=== PATIENT | female | born 1945 | race Caucasian/White ===

== ENCOUNTER 2017-12-12 12:25 | Inpatient (IN) | payer MEDICARE ==
--- NOTE | 2017-11-29 19:45 | HP ---
HISTORY AND PHYSICAL: DATE OF ADMISSION/SURGERY: 12/12/17 SURGEON: Teri Ronquillo MD * (DICTATED BY GAIL ABEL) PROCEDURE: Left total knee arthroplasty. CHIEF COMPLAINT: Left knee pain. HISTORY OF PRESENT ILLNESS: Ms. Miller is a 72-year-old female with end-stage osteoarthritis of the left knee. She has failed conservative management and has elected to proceed with a left total knee arthroplasty which is scheduled for 12/12/[address] Ronquillo. PAST MEDICAL HISTORY: Hypertension and dyslipidemia. PAST SURGICAL HISTORY: D and C, basal cell excision, and bilateral cataract removal. CURRENT MEDICATIONS: 1. Spironolactone 25 mg. 2. Atenolol 25 mg. 3. Simvastatin 20 mg daily. 4. CoQ10. 5. Multivitamin. 6. Calcium. ALLERGIES: To LATEX. FAMILY HISTORY: Diabetes, liver cancer, coronary artery disease, and COPD. SOCIAL HISTORY: She is a 72-year-old female. She lives with her . She does not smoke or use drugs. Uses occasional alcohol. REVIEW OF SYSTEMS: A complete 14-point review of systems is reviewed with the patient, it was all negative or noncontributory. She denies history of DVT, PE , hepatitis C, HIV, or anesthesia problems. PHYSICAL EXAMINATION GENERAL: She is well developed, well nourished, in no acute distress. VITAL SIGNS: She stands 5 feet 3 inches tall, weighs 160 pounds. Her blood pressure is 151/96, heart rate is 82. HEENT: Normocephalic, atraumatic. NECK: Supple. No palpable lymph nodes. PULMONARY: Lungs are clear to auscultation bilaterally. CARDIO: Regular rate and rhythm. Strong S1 and S2. ABDOMEN: Soft, nontender, nondistended. NEUROLOGIC: She is alert and oriented x3. Cranial nerves II through XII are intact. MUSCULOSKELETAL: Left lower extremity, the skin is intact. There is no open wounds or abrasions. There is a moderate joint effusion. Tenderness over the medial and lateral joint line. There is approximately 12 degrees valgus deformity at the left knee. 2+ dorsalis pedis pulses. She has intact sensation. Her lower extremity muscle group strengths are intact at 5/5. ASSESSMENT AND PLAN: Ms. Miller is a 72-year-old female with end-stage osteoarthritis of the left knee joint. She has failed conservative management and elected to proceed with a left total knee arthroplasty which is scheduled for 12/12/[address] Ronquillo discussed the risks and benefits of the surgery at today's visit and all of her questions were answered. Coumadin, Percocet, and Colace were sent to her pharmacy for postoperative pain control and DVT prophylaxis. She will follow up with Dr. Ronquillo 2 weeks after the surgery. GAIL ABEL [id number]/[facility] #: [id number] JAJA
[~2017-12-12 12:25] MED LIST: Buffered Lidocaine 0.9% SYRIN* 5 ML/SYR SYRINGE INTRADERM ONE; Bupivacaine 0.5% SDV PF* 10-30ML VIAL ONE; DiMENhydriNATE IV* 50 MG/ML VIAL IV PUSH PRN; Famotidine IV* 10 MG/ML 2 ML (20 mg) IV ONE; Gabapentin CAP(*) 300 MG PO ONE; Morphine INJ* 2 MG/ML 1 ML CARPUJECT IV PRN; Naloxone* 0.4 MG/ML 1 ML VIAL IV PRN; PROCHLORPERAZINE INJ 5 MG/ML 2 ML VIAL IV PRN; Scopolamine 1.5 mg* PATCH TRANSDERM ONE; fentaNYL* 50 MCG/ML 2 ML VIAL (100 MCG VIAL) IV PRN
[2017-12-12] MEDS ORDERED: Scopolamine 1.5 mg* PATCH ONE (12:30)
[2017-12-12] MEDS ORDERED: ceFAZolin 2 GM PREMIX (*) 2 GM/50 ML BAG IVPB ONE (12:30)
[2017-12-12] MEDS ORDERED: Famotidine IV* 10 MG/ML 2 ML (20 mg) ONE (12:30)
[2017-12-12] MEDS ORDERED: Gabapentin CAP(*) 300 MG ONE (12:30)
--- OUTSIDE RECORDS SUMMARY | 2017-12-12 13:09 | XMS REPORT ---
:1945 External Reference #:[id number] Author Organization [employer] Address [address] [address] Phone [phone] Care Team Providers Name Role Phone Eunice Head MD Primary Care Physician Unavailable Payers Type Date Identification Numbers Payment Provider Subscriber Health Maintenance Policy Number: Medicare Blue Ppo Susanna Miller Organization (HMO) [id number] Group Number: [id number] [address] [address] PayID: [id number] [place] [address] Problems Date Description Provider Status Onset: 08/03/2016 Localized, primary osteoarthritis Avel Lopez M.D. Active Family History Date Family Member(s) Problem(s) Comments General Diabetes General Heart Disease Social History Type Date Description Comments Lives With Spouse ETOH Use Currently consumes alcohol Smoking Patient has never smoked Exercise Type/Frequency Exercises sporadically Allergies, Adverse Reactions, Alerts Date Description Reaction Status Severity Comments 09/11/2014 Latex active Medications Medication Date Status Form Strength Qnty SIG Indications Ordering Provider Spironolactone / Active Tablets 25mg As Unknown 0000 directed Atenolol / Active Tablets 25mg As Unknown 0000 directed Simvastatin / Active Tablets 20mg 1 by mouth Unknown 0000 every day Aspir-Low 00/ Active Tablets DR 81mg 1 by mouth Unknown 0000 every day Cod Liver Oil 00/ Active Capsules 1000mg once daily Unknown 0000 Co Q10 Maximum / Active Capsules 200mg Unknown Strength 0000 Multi For Her / Active As Unknown 0000 directed Calcium 600+D3 00/ Active Tablets 600-400mg- 1 by mouth Unknown 0000 Unit every day Aleve 00/ Hx Tablets 220mg as needed Unknown 0000 - 2017 Medications Administered in Office Medication Date Status Form Strength Qnty SIG Indications Ordering Provider Depomedrol 40MG 10/04/ Administered Injection Avel Lopez M.D. Triamcinolone 03/10/ Administered Injection Presley (Kenalog) Sandi Culp MD Vital Signs Date Vital Result Comment 11/15/2017 Height 62.25 inches 5'2.25" Weight 160.00 lb BP Systolic 164 mmHg BP Diastolic 90 mmHg Body Temperature 99.0 F BMI (Body Mass Index) 29.0 kg/m2 10/04/2017 Height 65.75 inches 5'5.75" Weight 163.00 lb BP Systolic 130 mmHg BP Diastolic 78 mmHg Respiratory Rate 20 /min Pain Level 4 BMI (Body Mass Index) 26.5 kg/m2 03/10/2017 Height 65.75 inches 5'5.75" Weight 163.00 lb BP Systolic 174 mmHg BP Diastolic 72 mmHg Respiratory Rate 16 /min Pain Level 3 BMI (Body Mass Index) 26.5 kg/m2 08/03/2016 Height 65.75 inches 5'5.75" Weight 164.00 lb BP Systolic Sitting 140 mmHg BP Diastolic Sitting 90 mmHg Pain Level 2 2/10 increases as day goes on BMI (Body Mass Index) 26.7 kg/m2 09/16/2014 Height 63 inches 5'3" Weight 166.00 lb Heart Rate 71 /min BP Systolic 189 mmHg BP Diastolic 79 mmHg BMI (Body Mass Index) 29.4 kg/m2 Results Description No Information Procedures Date CPT Code Description Status 10/04/201790828 Inject/Drain Joint/Bursa Major Completed 03/10/2017 55900 Inject/Drain Joint/Bursa Major Completed Encounters Type Date Location Provider CPT E/M Dx Office Visit 03/10/2017 [facility] [place] [address] M17.12 10:15a C.M.APercy Office Visit 08/03/2016 [facility] [address]361 M17.12 2:00p CRoshan Monsalve Office Visit 09/16/2014 [facility], [address] 715.16 10:00a CRoshan Monsalve Plan of Care Future Appointment(s):01/10/2018 1:15 [facility] - Teri Ronquillo M.D.M25.562 Pain in left kneeFollow up:Follow up:M25.561 Pain in right kneeM17.0 Bilateral primary osteoarthritis of knee
--- OUTSIDE RECORDS SUMMARY | 2017-12-12 13:09 | XMS REPORT ---
:1945 External Reference #:[id number] Author Organization [employer] Address [address] [address] Phone [phone] Care Team Providers Name Role Phone Eunice Head MD Primary Care Physician Unavailable Payers Type Date Identification Numbers Payment Provider Subscriber Health Maintenance Policy Number: Medicare Blue Ppo Susanna Miller Organization (HMO) [id number] Group Number: [id number] [address] [address] PayID: [id number] [place] [address] Problems Date Description Provider Status Onset: 08/03/2016 [...] Form Strength Qnty SIG Indications Ordering Provider Colace 11/29/ Active Capsules 100mg 90caps 1 tab by Teri 2018 mouth 2-3 Yg, times a M.D. day as needed Spironolactone / Active Tablets 25mg As Unknown 0000 directed Atenolol / Active Tablets 25mg As Unknown 0000 directed Simvastatin / Active Tablets 20mg 1 by Unknown 0000 mouth every day Aspir-Low / Active Tablets DR 81mg 1 by Unknown 0000 mouth every day Cod Liver Oil / Active Capsules 1000mg once Unknown 0000 daily Co Q10 Maximum / Active Capsules 200mg Unknown Strength 0000 Multi For Her / Active As Unknown 0000 directed Calcium 600+D3 / Active Tablets 600-400mg- 1 by Unknown 0000 Unit mouth every day Aleve / Hx Tablets 220mg as needed Unknown 0000 - 2017 Medications Administered in Office Medication Date Status Form Strength Qnty SIG Indications Ordering Provider Depomedrol 40MG 10/04/ Administered Injection Avel 2016 Gricel Lopez Triamcinolone 03/10/ Administered Injection Zaneb (Kenalog) 2016 MD Robbi Vital Signs Date Vital Result Comment 11/29/2017 Height 62.25 inches 5'2.25" Weight 160.00 lb BP Systolic 151 mmHg BP Diastolic 96 mmHg Respiratory Rate 15 /min Body Temperature 96.6 F Pain Level 3 BMI (Body Mass Index) 29.0 kg/m2 11/15/2017 Height 62.25 inches 5'2.25" Weight 160.00 [...] Information Procedures Date CPT Code Description Status 10/04/2017 Inject/Drain Joint/Bursa Major Completed 03/10/2017 Inject/Drain Joint/Bursa Major Completed Encounters Type Date Location Provider CPT E/M Dx Office Visit 11/15/2017 [facility]i Ronquillo M.D. 32003 M25.562 11:00a Of [facility] M25.561 M17.0 Office Visit 03/10/2017 10:15a [facility] [place] [address] M17.12 Jean Office Visit 08/03/2016 2:00p [facility], [address] M17.12 [facility] Monsalve Office Visit 09/16/2014 10:00a [facility], [address] 715.16 Jean Monsalve Plan of Care Future Appointment(s):12/12/2017 1:00 pm - Teri Ronquillo M.D. at [facility]/29/2017 - Teri Ronquillo M.D.M25.562 Pain in left kneeFollow up:Follow up: 2 weeks after sovdvapE89.0 Bilateral primary osteoarthritis of knee
[2017-12-12] MEDS ORDERED: fentaNYL* 50 MCG/ML 2 ML VIAL (100 MCG VIAL) ONE ×2 (13:39→15:58)
[2017-12-12] MEDS ORDERED: Midazolam* 1 MG/ML 10 ML VIAL (10 MG) ONE (13:39)
[2017-12-12] MEDS ORDERED: KETAMINE HCL* 50 MG/ML 10 ML VIAL ONE (13:39)
[2017-12-12] MEDS ORDERED: Morphine PF AMP (0.5MG/ML)* 5 MG/10 ML AMP ONE (13:40)
[2017-12-12] MEDS ORDERED: Atracurium* 10 MG/ML 10 ML VIAL ONE (14:14)
[2017-12-12] MEDS ORDERED: Dexamethasone IV* 4 MG/ML 1 ML (4 MG) ONE (15:46)
[2017-12-12] MEDS ORDERED: Ketorolac INJ* 30 MG/ML 1 ML VIAL ONE (15:46)
[2017-12-12] MEDS ORDERED: Ondansetron INJ* 2 MG/ML VIAL ONE (15:46)
[2017-12-12] MEDS ORDERED: Metoprolol Tartrate IV* 1 MG/ML 5 ML VIAL ONE (15:46)
[2017-12-12] MEDS ORDERED: Propofol* 10 MG/ML 20 ML BTL IV PUSH ONE (15:46)
[2017-12-12] MEDS ORDERED: diPHENhydraMINE IV* 50 MG/ML 1 ml VIAL (BENADRYL) IV PRN (16:01)
[2017-12-12] MEDS ORDERED: Morphine INJ* 2 MG/ML 1 ML CARPUJECT IV PRN (16:01)
[2017-12-12] MEDS ORDERED: Ondansetron INJ* 2 MG/ML VIAL IV PRN (16:01)
[2017-12-12] MEDS ORDERED: Ondansetron TAB* 4 MG PO PRN (16:01)
[2017-12-12] MEDS ORDERED: Polyethylene Glycol 3350* 17 GM PACKET PO PRN (16:01)
[2017-12-12] MEDS ORDERED: Cyclobenzaprine TAB* 10 MG PO PRN (16:01)
[2017-12-12] MEDS ORDERED: Magnesium Hydroxide LIQ* 30 ML UDC PO PRN (16:01)
[2017-12-12] MEDS ORDERED: oxyCODONE TAB* 5 MG TAB PO PRN (16:01)
[2017-12-12] MEDS ORDERED: Bisacodyl SUPP* 10 MG SUPP PR PRN (16:01)
[2017-12-12] MEDS ORDERED: Morphine INJ* 10 MG/ML 1 ML CARPUJECT ONE (16:10)
[2017-12-12] MEDS ORDERED: Labetalol IV* 5 MG/ML 20 ML VIAL ONE (17:57)
[2017-12-12] MEDS ORDERED: Lidocaine 2% PF * 5 ML VIAL ONE (17:59)
--- NOTE | 2017-12-12 19:24 | RAD ---
HISTORY: Status post left knee arthroplasty COMPARISONS: November 15, 2017 VIEWS: 2, Frontal and lateral views of the left knee FINDINGS: BONE DENSITY: Normal. BONES: The patient is status post left knee arthroplasty. There is no hardware failure or osteolysis. JOINTS: The patient is status post left knee arthroplasty. ALIGNMENT: There is no dislocation. SOFT TISSUES: There is post surgical change to the soft tissue. OTHER FINDINGS: None. IMPRESSION: STATUS POST LEFT KNEE ARTHROPLASTY
--- NOTE | 2017-12-12 20:53 | CONS ---
CC: Dr. Head; Dr. Ronquillo * CONSULTATION REPORT: DATE OF CONSULT: 12/12/17 PRIMARY CARE PROVIDER: Dr. Head. MY ATTENDING PHYSICIAN WHILE IN THE HOSPITAL: Sujata Aguilar DO (report dictated by Derrick Ruiz NP) REQUESTING PHYSICIAN IN CONSULT: Dr. Ronquillo. REASON FOR MEDICAL CONSULTATION: Evaluation and medical management of comorbid medical problems. HISTORY OF PRESENTING ILLNESS: I refer you to Dr. Ronquillo's H and P for further details. In short, Ms. Miller is a 72-year-old female patient. She carries a history of hypertension, hyperlipidemia, osteoarthritis, prediabetes, migraines , and history of skin cancer. She presented to Dr. Ronquillo's service in an outpatient setting as she was having a significant amount of left knee pain that was affecting her activities of daily living. She sought conservative therapy initially, but this ultimately failed. It was felt that she would benefit from a total knee replacement, of which she underwent today. The patient is evaluated in the PACU. She says she just feels drowsy. She denies having any chest pain, denies having any abdominal pain. She says she is not feeling nauseous. She does not feel like she is going to faint. She does not feel lightheaded. She does not feel dizzy. No chest pain. No abdominal pain. She says her pain in her leg is well controlled, but because of her medical complexity, we were asked to evaluate in consult. PAST MEDICAL HISTORY: Significant for: 1. Hypertension. 2. Hyperlipidemia. 3. Osteoarthritis. 4. Prediabetes. 5. Migraines. 6. Skin cancer. PAST SURGICAL HISTORY: 1. She has had a D and C. 2. Cataract extraction. HOME MEDICATIONS: According to the preop list includes: 1. Coenzyme Q10 200 mg p.o. daily. 2. Systane 1 drop both eyes b.i.d. 3. Spironolactone 25 mg daily. 4. Simvastatin 20 mg daily. 5. Multivitamin 1 tablet daily. 6. Calcium carbonate with vitamin D 2 tablets p.o. at bedtime. 7. Atenolol 25 mg daily. 8. Cod liver oil 1 capsule daily. 9. Metronidazole gel 1 application topically b.i.d. 10. Aleve 1 tablet p.o. daily as needed. 11. Aspirin 2 tablets p.o. q.p.m. 12. Flaxseed 2 tablespoons p.o. q.a.m. ALLERGIES TO MEDICATIONS: Include LATEX. FAMILY HISTORY: Mother had a history of CHF. Father had a history of diabetes. SOCIAL HISTORY: She does not smoke. She occasionally drinks alcohol. Surrogate decision maker is her . REVIEW OF SYSTEMS: There is no documented fever. She denied having any significant weight change. There was no double vision. There is no ear discharge. She denies having any rhinorrhea. There was no sore throat, no thyroid enlargement. Denies having any chest pain. There was no orthopnea. No nocturnal dyspnea. There was no abdominal pain. There was no nausea, no vomiting. No dysuria, no frequency. No seizure, no loss of consciousness. No pruritus and no skin ulcerations. Review of 14 systems completed, all others negative. PHYSICAL EXAM: Vital Signs: Blood pressure 143/71, pulse 89, respirations 16, O2 sat 97% on 4 L, temperature 97.5. General: At this time, Ms. Miller is a 72- year-old female patient. She appears to be well nourished, well developed. She is sitting in the ED stretcher. She does not appear to be in any acute distress. HEENT: Head is atraumatic and normocephalic. Eyes: Sclerae are anicteric and not pale. Neck: Supple. Throat: Oral mucosa appears to be dry. No oropharyngeal erythema. Heart: Sounds S1, S2. Regular rate and rhythm. No murmurs, rubs, or gallops. Lungs were clear to auscultation bilaterally. No wheezes, rales, or rhonchi. Abdomen was soft, it was flat. Bowel sounds hypoactive. Extremities: Pulses were 2+ throughout. Moving all 4 extremities with 5/5 strength. Neurologically, the patient is awake, alert, and oriented x3. She is a little drowsy, but she is oriented x3. She awakens and has appropriate conversation. Technician Anatomic Pathology were equal. Tongue midline. No gross focal deficits. Skin is intact. DIAGNOSTIC STUDIES/LAB DATA: Preop WBC 9.4, RBC of 5.29, hemoglobin 16.1, hematocrit 46, platelet count 245,000. INR 1.02, PTT of 38.2. Chemistries preop showed trace ketones only. Sodium 140, potassium 4.0, chloride 101, bicarb 30, BUN 13, creatinine 0.76, glucose 92. A1c was 5.8. Calcium 2.9. AST 25, ALT 23. The patient did have a preop chest x-ray which showed no active cardiopulmonary disease. Old medical records were reviewed. ASSESSMENT AND PLAN: Ms. Miller is a 72-year-old female patient coming into the orthopedic services today for an elective total knee. We were asked to evaluate for consult. Our recommendations at this point are: 1. Status post left total knee. I will defer the management to Dr. Ronquillo and her team. 2. Hypertension. Continue medications as prescribed with the exception of spironolactone. I would hold this for at least the first 24 hours after postop and then restart it. 3. Hyperlipidemia. Continue statin therapy. 4. Osteoarthritis. I will defer the management to her primary team. 5. Prediabetes. Continue with lifestyle management. 6. History of migraines. This is a remote issue. We will continue to monitor. 7. DVT prophylaxis. I will defer to the primary team. 8. Fluids, electrolytes, and nutrition. She can have a regular diet. 9. Code status. Full code. TIME SPENT: On the consult was 60 minutes; greater than half the time spent face- to-face with the patient obtaining my history and physical, the other half time was spent going over the plan of care with the patient and implementing plan of care. I did discuss the plan of care with my attending physician, Dr. Aguilar, she is in agreement. DERRICK RUIZ, MARIKA [id number]/[facility] #: [id number] JAJA
[2017-12-12] MEDS ORDERED: Warfarin TAB(*) 6 MG PO ONE (21:00)
[2017-12-12] MEDS: Atenolol TAB* 25 MG PO SCH (21:42)
[2017-12-12] MEDS: Docusate CAP* 100 MG PO SCH (21:42)
[2017-12-12] MEDS: Atorvastatin* 10 MG TAB PO SCH (21:42)
[2017-12-12] MEDS: Acetaminophen TAB* 325 MG PO PRN (21:43)
[2017-12-12] MEDS: Magnesium Hydroxide LIQ* 30 ML UDC PO SCH (21:43)
[2017-12-12] MEDS: Artificial Tears* 15 ML BTL BOTH EYES SCH (21:45)
[2017-12-13] MEDS: ceFAZolin 1 GM in Dextrose (*) 1 GM/50 ML BAG IVPB SCH ×3 (00:09→16:23)
[2017-12-13] MEDS: oxyCODONE/Acetamin 5/325 MG* TAB PO PRN ×5 (03:03→20:48)
[2017-12-13 06:45] LABS: Hematocrit 34 % (35-47); Hemoglobin 11.9 g/dl (12.0-16.0); Mean Platelet Volume 9 um3 (7.4-10.4); Platelet Count 197 10^3/ul (150-450)
[2017-12-13 06:51] LABS: INR 1.12 (0.77-1.02)
[2017-12-13 07:02] LABS: EGFR Non-African American 83.2 (>60)
[2017-12-13] MEDS ORDERED: Spironolactone TAB* 25 MG PO SCH (09:00)
[2017-12-13] MEDS: Artificial Tears* 15 ML BTL BOTH EYES SCH ×2 (09:31→20:50)
[2017-12-13] MEDS: Docusate CAP* 100 MG PO SCH ×2 (09:32→20:48)
[2017-12-13] MEDS: Magnesium Hydroxide LIQ* 30 ML UDC PO SCH ×2 (09:32→20:50)
--- NOTE | 2017-12-13 11:55 | PN ---
Progress Note - Progress Note Date of Service: 12/13/17 SOAP: Subjective: []Patient seen at bedside. She is feeling well with little pain of her LLE. Denies dizziness, nausea, CP, SOB, leg numbness. Objective: []General: Well appearing, NAD LLE: Dressing CDI. Cryo in place. DF/PF intact. 2+ PT pulse. Sensation intact distally BL LE: Calves supple and nontender without erythema, edema or palpable cords. Vital Signs Temp 98.1 F 12/13/17 08:00 Pulse 65 12/13/17 08:00 Resp 18 12/13/17 11:05 BP 107/54 12/13/17 08:00 Pulse Ox 99 12/13/17 08:00 Intake & Output 12/12/17 12/13/17 12/13/17 18:59 06:59 18:59 Intake Total 2200 360 1176 Output Total 550 1250 300 Balance 1650 -890 876 Weight 161 lb Intake: IV Fluids 2200 1064 LR 2200 1064 IVPB 112 LR 112 Oral 360 Output: Urine 300 Gramajo 200 1250 Residual 50 16 Fr 50 Estimated Blood Loss 300 Laboratory Last Values Hgb 11.9 g/dl (12.0-16.0) L 12/13/17 06:36 Hct 34 % (35-47) L 12/13/17 06:36 Plt Count 197 10^3/ul (150-450) 12/13/17 06:36 MPV 9 um3 (7.4-10.4) 12/13/17 06:36 INR (Anticoag Therapy) 1.12 (0.77-1.02) H 12/13/17 06:36 Sodium 136 mmol/L (133-145) 12/13/17 06:36 Potassium 4.5 mmol/L (3.5-5.0) 12/13/17 06:36 Chloride 102 mmol/L (101-111) 12/13/17 06:36 Carbon Dioxide 28 mmol/L (22-32) 12/13/17 06:36 Anion Gap 6 mmol/L (2-11) 12/13/17 06:36 BUN 11 mg/dL (6-24) 12/13/17 06:36 Creatinine 0.69 mg/dL (0.51-0.95) 12/13/17 06:36 Est GFR ( Amer) 107.0 (>60) 12/13/17 06:36 Est GFR (Non-Af Amer) 83.2 (>60) 12/13/17 06:36 BUN/Creatinine Ratio 15.9 (8-20) 12/13/17 06:36 Glucose 148 mg/dL (70-100) H 12/13/17 06:36 Calcium 9.0 mg/dL (8.6-10.3) 12/13/17 06:36 Assessment: []POD 1 SP left total knee arthroplasty 12/12, Dr Ronquillo Plan: []WBAT PT/OT Lovenox, coumadin 6 mg today
[2017-12-13] MEDS ORDERED: Enoxaparin(*) 30 MG/0.3 ML SYR SUBCUT SCH (12:00)
--- NOTE | 2017-12-13 12:42 | PN ---
Subjective Date of Service: 12/13/17 Interval History: Pt examined today at the bedside. She states that she is feeling well. SHe denies chest pain and denies sob. States her knee pain is well controlled. ROS-denies fever, denies chills, denies chest pain, denies sob, denies nausea, denies vomiting, denies lightheadedness, denies loc, review of 11 sytems completed all others negative. Objective Active Medications: Acetaminophen (Tylenol Tab*) 650 mg PO Q4H PRN PRN Reason: PAIN OR TEMPERATURE Last Admin: 12/12/17 21:43 Dose: 650 mg Atenolol (Tenormin Tab*) 25 mg PO QPM [facility] Last Admin: 12/12/17 21:42 Dose: 25 mg Atorvastatin Calcium (Lipitor*) 10 mg PO QPM [facility] Last Admin: 12/12/17 21:42 Dose: 10 mg Bisacodyl (Dulcolax Supp*) 10 mg SD DAILY PRN PRN Reason: constipation Cyclobenzaprine HCl (Flexeril Tab*) 10 mg PO TID PRN PRN Reason: SPASMS Diphenhydramine HCl (Benadryl Iv*) 12.5 mg IV Q6H PRN PRN Reason: PRURITIS Docusate Sodium (Colace Cap*) 100 mg PO BID [facility] Last Admin: 12/13/17 09:32 Dose: 100 mg Enoxaparin Sodium (Lovenox(*)) 30 mg SUBCUT Q24H [facility] Cefazolin Sodium/Dextrose (Kefzol 1 Gm In Dextrose Duplex (*)) 1 gm in 50 mls @ 200 mls/hr IVPB Q8H [facility] Stop: 12/13/17 16:14 Last Admin: 12/13/17 08:24 Dose: 200 mls/hr Lactated Ringer's (Lactated Ringers 1000 Ml Bag*) 1,000 mls @ 100 mls/hr IV PER RATE [facility] Last Admin: 12/13/17 08:22 Dose: 100 mls/hr Lactulose (Lactulose*) 30 ml PO Q6H PRN PRN Reason: constipation Magnesium Hydroxide (Milk Of Magnesia Liq*) 30 ml PO BID [facility] Last Admin: 12/13/17 09:32 Dose: 30 ml Magnesium Hydroxide (Milk Of Magnesia Liq*) 30 ml PO Q6H PRN PRN Reason: constipation Morphine Sulfate (Morphine Inj (Syringe)*) 2 mg IV Q2H PRN PRN Reason: PAIN Ondansetron HCl (Zofran Inj*) 4 mg IV Q6H PRN PRN Reason: nausea Ondansetron HCl (Zofran Tab*) 4 mg PO Q6H PRN PRN Reason: NAUSEA Oxycodone HCl (Roxycodone Tab*) 10 mg PO Q4H PRN PRN Reason: SEVERE PAIN Oxycodone/Acetaminophen (Percocet 5/325 Tab*) 2 tab PO Q4H PRN PRN Reason: PAIN Last Admin: 12/13/17 08:24 Dose: 2 tab Oxycodone/Acetaminophen (Percocet 5/325 Tab*) 1 tab PO Q4H PRN PRN Reason: PAIN Last Admin: 12/13/17 03:03 Dose: 1 tab Pharmacy Profile Note (Scopolamine Patch Remove*) 1 note PATCH OFF ONCE ONE Stop: 12/15/17 06:01 Pharmacy Profile Note (Coumadin Daily Reminder*) 1 note FOLLOW UP 1700 [facility] Polyethylene Glycol/Electrolytes (Miralax*) 17 gm PO DAILY PRN PRN Reason: Constipation Polyvinyl Alcohol (Polyvinyl Alcohol 1.4% Opth*) 1 drop BOTH EYES BID [facility] Last Admin: 12/13/17 09:31 Dose: 1 drop Warfarin Sodium (Coumadin Tab(*)) 6 mg PO ONCE@1700 TIFF PRN Reason: Protocol Stop: 12/13/17 17:01 Vital Signs - 8 hr 12/13/17 12/13/17 12/13/17 05:30 08:00 08:24 Temperature 98.1 F Pulse Rate 65 Respiratory 18 18 18 Rate Blood Pressure 107/54 (mmHg) O2 Sat by Pulse 99 Oximetry 12/13/17 12/13/17 11:05 11:34 Temperature 98.1 F Pulse Rate 58 Respiratory 18 17 Rate Blood Pressure 110/45 (mmHg) O2 Sat by Pulse 98 Oximetry Oxygen Devices in Use Now: None Appearance: 72 y/o female patient sitting in bed NAD, Eyes: No Scleral Icterus, PERRLA Ears/Nose/Mouth/Throat: NL Teeth, Lips, Gums Neck: NL Appearance and Movements; NL JVP Respiratory: Symmetrical Chest Expansion and Respiratory Effort Cardiovascular: NL Sounds; No Murmurs; No JVD Abdominal: NL Sounds; No Tenderness; No Distention Extremities: No Edema, - - distal csm checks intact, Skin: No Rash or Ulcers, - - incision to left knee CDI Neurological: Alert and Oriented x 3 Lines/Tubes/Other Access: Clean, Dry and Intact Peripheral IV Result Diagrams: 12/13/17 06:36 12/13/17 06:36 Assess/Plan/Problems-Billing Assessment: 72 y/o female patient presenting to [facility] for a LTKA, - Patient Problems (1) HTN (hypertension) Current Visit: Yes Status: Acute Priority: High Comment: Bp 110 systolic this am hold aldactone for now, continue when able, continue beta, (2) Status post total left knee replacement Current Visit: Yes Status: Acute Priority: High Comment: POD 1 management per ORTHO (3) HLD (hyperlipidemia) Current Visit: Yes Status: Acute Priority: High Comment: continue statin (4) Osteoarthritis Current Visit: Yes Status: Acute Priority: High Comment: continue home meds, follow with pcp (5) Pre-diabetes Current Visit: Yes Status: Acute Priority: High Comment: diet controlled, follow with pcp (6) Migraines Current Visit: Yes Status: Acute Priority: High Comment: not currently active, (7) DVT prophylaxis Current Visit: Yes Status: Acute Priority: High Comment: per ortho (8) FEN Current Visit: Yes Status: Acute Priority: High Comment: regular diet (9) Full code status Current Visit: Yes Status: Acute Priority: High Status and Disposition: per ortho home when able
[2017-12-13] MEDS ORDERED: Warfarin TAB(*) 6 MG PO SCH (17:00)
[2017-12-13] MEDS: Atenolol TAB* 25 MG PO SCH (17:19)
[2017-12-13] MEDS: Atorvastatin* 10 MG TAB PO SCH (17:19)
--- NOTE | 2017-12-14 00:29 | OP ---
DATE OF OPERATION: 12/12/17 - ROOM #350 DATE OF : 41 SURGEON: Teri Ronquillo MD TIRE SPECIALIST: GAIL Alas. Ms. Swann did help throughout the procedure with preparation of the leg, wound retraction, manipulation of the knee, and wound closure. ANESTHESIOLOGIST: Jorge Zhang MD ANESTHESIA: Spinal with adductor nerve block. 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 POST-OP DIAGNOSIS: Severe end-stage degenerative osteoarthritis of the left knee joint with valgus deformity. OPERATIVE PROCEDURE: Left total knee arthroplasty. INDICATIONS: Mr. Dougherty is a 72-year-old female with years of increasingly severe left knee pain and valgus deformity. Radiographs showed cncv-fq-shcq arthritis. She failed conservative treatment with anti-inflammatories, pain medications, intra- articular injections, and physical therapy. Radiographs showed awav-lc-hnwk arthritis. Due to continued pain and decreased quality of life, she elected to undergo left total knee arthroplasty. Informed consent was obtained from the patient. She understood the risks of surgery included but were not limited to bleeding, infection, damage to nearby structures, continued pain, need for further surgery, intraoperative fracture, nerve palsy, hardware failure or loosening, knee stiffness, loss of motion, stroke, heart attack, blood clot, and . She wished to proceed. TOURNIQUET TIME: 67 minutes. COMPLICATIONS: None. ESTIMATED BLOOD LOSS: 300 cc. SPECIMENS: Bone and cartilage from the left knee joint sent to Pathology. HARDWARE USED: This is a cemented [employer] total knee arthroplasty hardware with 2 packages of Simplex bone cement. For the femur, a size 4 left posterior stabilized Legion narrow femoral component. For the tibia, a size 3 left Cristal II tibial baseplate. For the insert, a 9-mm, posterior stabilized articular insert size 3-4. For the patella, a 29-mm 7.5 thickness 3-peg all poly patella. INTRAOPERATIVE FINDINGS: Intraoperatively, the patient was noted to have significant osteopenia. She had preoperative valgus deformity of 15 degrees with the flexion contracture of 15 degrees. Hamstring tightness was noted throughout the case. Significant osteopenia was noted. The lateral compartment had some bony deformation and lateral femoral condylar hypoplasia. DESCRIPTION OF PROCEDURE: Ms. Dougherty was identified in the preanesthesia unit. Her left lower extremity was marked as the correct operative side. Informed consent was signed and placed in the chart. The patient was taken to the operating room and placed under general anesthesia with an adductor nerve block. A Gramajo catheter was placed. Tourniquet was placed on the left thigh. Left lower extremity was prepped and draped in the usual sterile fashion. ____ _ correctly identify the patient's side and site. Appropriate perioperative antibiotics were given within 1 hour of incision. Tourniquet was inflated until the tourniquet time for this procedure was 67 minutes. A 12-cm midline incision was made with a 10 blade and carried down to the extensor mechanism. A new 10 blade was used to make a standard medial parapatellar arthrotomy. The patella was subluxed laterally. Electrocautery was used to subperiosteally elevate the soft tissue off the superomedial tibia. The knee was flexed up. The anterior horn of the lateral meniscus was sharply released. There was no ACL. Significant deformity and loss of cartilage was noted in the lateral and patellofemoral compartments. A drill was used to enter the distal femur. Intramedullary distal femoral cutting guide was pinned on the distal femur. Lateral femoral condylar hypoplasia was noted and accounted for. Oscillating saw was used to make the distal femoral cut. External rotation guide was pinned on the distal femur and the distal femur was sized to a size 4. Size 4 multi-cutting jig was pinned on the distal femur. The 4 chamfer cuts were made with the oscillating saw. The PCL was completely released. The tibia was subluxed anteriorly. Extramedullary tibial cutting guide was pinned on the proximal tibia. Oscillating saw was used to make the appropriate proximal tibial cut perpendicular to the mechanical axis of the tibia. The bone was carefully removed. The knee was brought out into full extension. The spacer block had good fit, although hamstring tightness was noted. The knee was in full extension. There was some lateral tightness of the ligaments. Electrocautery was used to elevate posterolateral capsule off the tibia. Any osteophytes were removed. A 15 blade was used to perform conservative pie-crusting of the lateral ligament. Medial and lateral ligamentous balancing was much improved. Flexion and extension gaps were well balanced. The knee was flexed up. Lamina marine gear keeper was placed medially and laterally. Any remaining meniscus was carefully removed using electrocautery. Curved osteotome was used to remove any posterior osteophytes. Tibial tray and drop aleisha confirmed satisfactory tibial cut. A size 4 narrow left femoral trial was impacted on to the distal femur. This had excellent fit. The box for the posterior stabilized implant was prepared using a reamer and box cut osteotome. A size 3 tibial tray trial with a 9-mm insert trial was placed and the knee was taken through a range of motion. The knee had full extension to 130 degrees of flexion with satisfactory patellofemoral tracking. The patella was everted. A 7-mm of patellar bone and cartilage was carefully removed using an oscillating saw. The patella was sized to a size 29. Three peg holes were also drilled through the size 29 guide. A 7.5 thickness 29 trial was chosen and placed on the patella. The knee was taken through range of motion. Patellofemoral tracking was satisfactory. All trials were carefully removed. The tibia was subluxed anteriorly and sized to a size 3. Proximal tibia was prepared using a size 3 keel punch. All bony cut surfaces were copiously irrigated with sterile saline and dried. The final implants were cemented into place starting with the tibia followed by the femur and lastly the patella. A 9-mm insert trial was placed while the knee was brought out into full extension. Tourniquet was turned down at 67 minutes. The cement was allowed to fully cure. Electrocautery was used to obtain meticulous hemostasis. The knee was copiously irrigated with sterile saline. Once the cement had fully cured, the insert trial was removed. Any excess cement was carefully removed from around the hardware and capsule. Final insert chosen was a 9-mm posterior stabilized articular insert size 3-4. This was locked into position on the tibial tray. Stability of the insert was checked and rechecked and noted to be stable. The knee was once again copiously irrigated with sterile saline. The extensor mechanism was closed over a medium Hemovac drain using interrupted #1 Vicryls. The rest of the incision was closed in a layered fashion using 0 and 2-0 Vicryls. Skin was closed using running 3-0 nylon suture. Sterile Xeroform, 4x4s, and Webril were used to cover the incision. Jhon wrap and cold pack were placed over this. The patient's anesthesia was reversed without difficulty. She was taken to the PACU in stable condition. Intended weightbearing will be weightbearing as tolerated. Intended DVT prophylaxis will be Coumadin with Lovenox bridge. [id number]/[facility] #: [id number] [facility]
[2017-12-14] MEDS: oxyCODONE/Acetamin 5/325 MG* TAB PO PRN ×3 (03:17→12:59)
[2017-12-14 06:31] LABS: INR 2.8 (0.77-1.02)
[2017-12-14 06:56] LABS: Hematocrit 30 % (35-47); Hemoglobin 10.3 g/dl (12.0-16.0); Mean Platelet Volume 10 um3 (7.4-10.4); Platelet Count 164 10^3/ul (150-450)
[2017-12-14] MEDS: Artificial Tears* 15 ML BTL BOTH EYES SCH (08:46)
[2017-12-14] MEDS: Docusate CAP* 100 MG PO SCH (08:46)
[2017-12-14] MEDS: Magnesium Hydroxide LIQ* 30 ML UDC PO SCH (08:46)
[2017-12-14] MEDS: Acetaminophen TAB* 325 MG PO PRN (08:47)
--- NOTE | 2017-12-14 09:31 | PN ---
Progress Note - Progress Note Date of Service: 12/14/17 SOAP: Subjective: []Patient seen at bedside. Her pain is well controlled and she is ready for discharge. Denies dizziness, SOB, CP, nausea or leg numbness. Objective: [] Vital Signs Temp 98.8 F 12/14/17 07:38 Pulse 66 12/14/17 07:38 Resp 18 12/14/17 08:47 BP 106/55 12/14/17 07:38 Pulse Ox 97 12/14/17 07:38 Intake & Output 12/13/17 12/14/17 12/14/17 18:59 06:59 18:59 Intake Total 1716 1350 240 Output Total 1300 300 400 Balance 416 1050 -160 Intake: IV Fluids 1084 LR 1084 IVPB 167 LR 167 Oral 465 1350 240 Output: Urine 1300 300 400 Other: # Bowel Movements 0 Laboratory Last Values Hgb 10.3 g/dl (12.0-16.0) L 12/14/17 06:09 Hct 30 % (35-47) L 12/14/17 06:09 Plt Count 164 10^3/ul (150-450) 12/14/17 06:09 MPV 10 um3 (7.4-10.4) 12/14/17 06:09 INR (Anticoag Therapy) 2.80 (0.77-1.02) H 12/14/17 06:09 Sodium 136 mmol/L (133-145) 12/13/17 06:36 Potassium 4.5 mmol/L (3.5-5.0) 12/13/17 06:36 Chloride 102 mmol/L (101-111) 12/13/17 06:36 Carbon Dioxide 28 mmol/L (22-32) 12/13/17 06:36 Anion Gap 6 mmol/L (2-11) 12/13/17 06:36 BUN 11 mg/dL (6-24) 12/13/17 06:36 Creatinine 0.69 mg/dL (0.51-0.95) 12/13/17 06:36 Est GFR ( Amer) 107.0 (>60) 12/13/17 06:36 Est GFR (Non-Af Amer) 83.2 (>60) 12/13/17 06:36 BUN/Creatinine Ratio 15.9 (8-20) 12/13/17 06:36 Glucose 148 mg/dL (70-100) H 12/13/17 06:36 Calcium 9.0 mg/dL (8.6-10.3) 12/13/17 06:36 General: Well appearing, NAD LLE: Dressing changed. Incision CDI without erythema or discharge. DF/PF intact. Sensation intact distally. 2+ DP pusle BL LE: Calves supple and nontender without erythema, edema or palpable cords. Assessment: []POD 2 SP left total knee arthroplasty 12/12, Dr Ronquillo Plan: []WBAT PT/OT Stop Lovenox, hold coumadin (0 mg) today DC home today
[2017-12-14 11:53] VITALS: BP 127/43
[2017-12-15] MEDS ORDERED: Scopolamine PATCH Remove* 1 NOTE MISC PATCH OFF ONE (06:00)
--- NOTE | 2017-12-15 11:58 | DS ---
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 OPERATIVE PROCEDURE: Left total knee arthroplasty. HISTORY: Ms. Dougherty is a 72-year-old female with years of increasingly severe left knee pain and valgus deformity. Radiographs showed jyqw-qf-qsrd arthritis. She failed conservative treatment with anti-inflammatories, pain medications, intraarticular injections, and physical therapy. Radiographs showed ocuw-sy-jfwo arthritis. The patient elected for left total knee arthroplasty due to decreased quality of life. HOSPITAL COURSE: The patient was admitted to [facility] on . She underwent a left total knee arthroplasty without complication. She was taken to the PACU in stable condition where she recovered briefly and then was transferred to the short stay surgical unit again in stable condition. Postop day 1, dressing was clean, dry, and intact. Cryo unit in place. Dorsiflexion and plantar flexion intact. 2+ posterior tibial pulse. Sensation is intact distally. Bilateral lower extremities, calves were supple and nontender without erythema, edema, or palpable cord. Hemoglobin 11.9, hematocrit 34. INR 1.12. The patient was also seen by the hospitalist service on postop day 1. Then on postop day 2, the patient is well appearing, in no acute distress. Dressing was changed. Incision clean, dry and intact without erythema or discharge. Dorsiflexion and plantarflexion are intact. Sensation intact distally. 2+ dorsalis pedis pulse. Calves supple and nontender without erythema , edema, or palpable cords. Hemoglobin 10.3, hematocrit 30. INR 2.80. Lovenox discontinued. Coumadin was held today. The patient will be discharged home today. She was deemed to be medically and orthopedically stable for discharge home. DISCHARGE MEDICATIONS: 1. Calcium with D two tablets p.o. q.p.m. 2. CoQ10 200 mg tablet p.o. q.a.m. 3. Aspirin 81 mg two tablets p.o. q.p.m. The patient is to hold this medication until she is done with Coumadin. 4. Flaxseed two teaspoons p.o. q.a.m. 5. Systane one drop both eyes b.i.d. 6. Aleve one cap p.o. q. daily p.r.n. 7. Metronidazole one topical application b.i.d. 8. Spironolactone 25 mg p.o. q.a.m. 9. Simvastatin 20 mg p.o. q.p.m. 10. Multivitamins one tab p.o. q.a.m. 11. Cod liver oil one cap p.o. q.a.m. 12. Atenolol 25 mg p.o. q.p.m. 13. Acetaminophen 650 mg p.o. q.4 hours p.r.n. 14. Docusate 100 mg p.o. b.i.d. p.r.n. 15. Percocet 1 to 2 tabs of 5/325 mg every 4 to 6 hours p.r.n. 16. Warfarin 2 mg tablet, take 1 to 3 tabs daily as per INR draws. DISCHARGE PLAN: Weightbearing as tolerated. Okay to shower after 12/15/17. Do not submerge wound. Go to the emergency room with shortness of breath or chest pain. Cover with gauze, Jhon wrap, and tape. Call orthopedic office for increased drainage, redness, increased pain or fever. Continue physical therapy and occupational therapy exercises as shown. Visiting nurse to do wound check as well as draw INRs on Mondays and . Coumadin dosing , 0 mg; 12/15, 2 mg; 12/16 0 mg; 12/17, 2 mg. Recheck INR on 12/18. Please hold the aspirin 81 mg tab until you have stopped taking Coumadin, then resume your normal dose. Pain control with Percocet 5/325 one to two tabs by mouth every 4 to 6 hours as needed for pain, maximum of 10 tabs per day. Follow up with Dr. Ronquillo in 10 to 14 days. Call for an appointment. GAIL CABRAL [id number]/[facility] #: [id number] [facility]
== END 2017-12-14 13:34 | disposition home health service (06) | DRG 470 ==
LOC: AA 12:25 → SSU 20:00
PROVIDERS: ADMIT Orthopaedic Surgery Adult Reconstructive Orthopaedic Surgery; ATTEND Orthopaedic Surgery Adult Reconstructive Orthopaedic Surgery
PROC: 0SRD0J9 Replacement of Left Knee Joint with Synthetic Substitute, Cemented, Open Approach (ICD-10-PCS; principal; 2017-12-12 15:00)
DX: M17.12 Unilateral primary osteoarthritis, left knee (principal); E78.5 Hyperlipidemia, unspecified; I10 Essential (primary) hypertension; R73.03 Prediabetes; G43.909 Migraine, unspecified, not intractable, without status migrainosus; M21.062 Valgus deformity, not elsewhere classified, left knee; M85.862 Other specified disorders of bone density and structure, left lower leg; M25.762 Osteophyte, left knee; Z98.42 Cataract extraction status, left eye; Z98.41 Cataract extraction status, right eye; Z91.040 Latex allergy status; Z72.89 Other problems related to lifestyle; Z85.828 Personal history of other malignant neoplasm of skin; Z82.49 Family history of ischemic heart disease and other diseases of the circulatory system; Z83.3 Family history of diabetes mellitus; Q74.1 Congenital malformation of knee; Z79.82 Long term (current) use of aspirin; Z80.0 Family history of malignant neoplasm of digestive organs; Z82.5 Family history of asthma and other chronic lower respiratory diseases; M24.562 Contracture, left knee
CPT/HCPCS: 36415; 80048; 85014; 85018; 85049; 85610; 88305; 88311; A9270-GY; C1776; J0690; J1100; J1650; J1885; J2250; J2270; J2405; J2704; J3010; J3490

== ENCOUNTER 2018-03-13 09:25 | Emergency (ER) | payer MEDICARE ==
--- OUTSIDE RECORDS SUMMARY | 2018-03-13 09:31 | XMS REPORT ---
:1945 External Reference #:[id number] Author Organization [email or web address] Address [address] [address] Phone [phone] Care Team Providers Name Role Phone Eunice Head MD Primary Care Physician Unavailable Payers Type Date Identification Numbers Payment Provider Subscriber Health Maintenance Policy Number: Medicare Blue Ppo Susanna Miller Organization (HMO) [id number] Group Number: [id number] [address] [id number] PayID: [id number] [place] [address] Problems Date Description Provider Status Onset: 08/03/2016 [...] Form Strength Qnty SIG Indications Ordering Provider Compression 01/26/ Active Misc 2unit Teri Stockings 2018 s b/L ZARA'herberth Ronquillo M.D. Ibuprofen 12/27/ Active Tablets 600mg 90tab take 1 M25.562 Teri 2018 s tab by ryan Ronquillo M.D. with food 3 times a day as needed pain Spironolactone 0000/ Active Tablets 25mg As Unknown 0000 directed Atenolol 0000/ Active Tablets 25mg As Unknown 0000 directed Simvastatin 00/ Active Tablets 20mg 1 by Unknown 0000 [...] by Unknown 0000 Unit mouth every day Cyclobenzaprine 12/20/ Hx Tablets 10mg 60tab take 1 M25.562 Teri HCL 2018 - s tab by Yg, 01/25/ mouth 2 M.D. 2018 times a day as needed Coumadin 12/08/ Hx Tablets 2mg 90tab take 1-3 Teri 2018 - s tabs by Yg, 01/25/ mouth at M.D. 2018 5 at night as directed Oxycodone-Acetami 12/08/ Hx Tablets 5-325mg 60tab 1-2 tabs Teri nophen 2017 - s by mouth Yg, 01/25/ every 6 M.D. 2018 hours as needed for post-op pain Bactrim DS 12/01/ Hx Tablets 800-160mg 6tabs take 1 by Teri 2018 - mouth Yg, 12/25/ twice a M.D. 2018 day for 3 days Colace 11/29/ Hx Capsules 100mg 90cap 1 tab by Teri 2018 - s mouth 2-3 Yg, 01/25/ times a M.D. 2017 day as needed Aleve / Hx Tablets 220mg as needed Unknown 0000 - 2017 Medications Administered in Office Medication Date Status Form Strength Qnty SIG Indications Ordering Provider Depomedrol 40MG 10/04/ Administered Injection Avel Lopez M.D. Triamcinolone 03/10/ Administered Injection Zaneb (Kenalog) Sandi Culp MD Vital Signs Date Vital Result Comment 03/02/2018 Height 62 inches 5'2" Heart Rate 66 /min BP Systolic 110 mmHg BP Diastolic 62 mmHg Respiratory Rate 16 /min Body Temperature 97.0 F Pain Level 2 01/26/2018 Height 62 inches 5'2" Weight 150.00 lb BP Systolic 150 mmHg BP Diastolic 80 mmHg Body Temperature 98.4 F Pain Level 2 BMI (Body Mass Index) 27.4 kg/m2 12/27/2017 Height 62 inches 5'2" Weight 156.00 lb Heart Rate 80 /min BP Systolic 140 mmHg BP Diastolic 74 mmHg Body Temperature 97.8 F Pain Level 5 BMI (Body Mass Index) 28.5 kg/m2 12/20/2017 Height 62.5 inches 5'2.50" Weight 156.00 lb BP Systolic 138 mmHg BP Diastolic 80 mmHg Body Temperature 97.5 F Pain Level 7 BMI (Body Mass Index) 28.1 kg/m2 11/29/2017 Height 62.25 inches 5'2.25" Weight 160.00 [...] BMI (Body Mass Index) 29.4 kg/m2 Results Test Date Test Result H/L Range Note Urinalysis Profile 11/29/2017 Urine Color Yellow 1 Urine Appearance Clear 1 Urine Specific [place] 1.005 Low 1.010-1.030 1 Urine pH 7.0 5-9 1 Urine Urobilinogen Negative Negative 1 Urine Ketones Trace Negative 1 Urine Protein Negative Negative 1 Urine Leukocytes Negative Negative 1 Urine Blood Negative Negative 1 Urine Nitrite Negative Negative 1 Urine Bilirubin Negative Negative 1 Urine Glucose Negative Negative 1 CBC Auto Diff 11/29/2017 White Blood Count 9.4 10^3/uL 3.5-10.8 1 Red Blood Count 5.29 10^6/uL 4.0-5.4 1 Hemoglobin 16.1 g/dL High 12.0-16.0 1 Hematocrit 46 % 35-47 1 Mean Corpuscular Volume 87 fL 80-97 1 Mean Corpuscular Hemoglobin 30 pg 27-31 1 Mean Corpuscular HGB Conc 35 g/dL 31-36 1 Red Cell Distribution Width 14 % 10.5-15 1 Platelet Count 245 10^3/uL 150-450 1 Mean Platelet Volume 10 um3 7.4-10.4 1 Abs Neutrophils 5.8 10^3/uL 1.5-7.7 1 Abs Lymphocytes 2.4 10^3/uL 1.0-4.8 1 Abs Monocytes 0.9 10^3/uL High 0-0.8 1 Abs Eosinophils 0.2 10^3/uL 0-0.6 1 Abs Basophils 0.1 10^3/uL 0-0.2 1 Abs Nucleated RBC 0 10^3/uL 1 Granulocyte % 62.4 % 38-83 1 Lymphocyte % 25.3 % 25-47 1 Monocyte % 9.7 % High 1-9 1 Eosinophil % 1.7 % 0-6 1 Basophil % 0.9 % 0-2 1 Nucleated Red Blood Cells % 0.1 1 Inr/Protime 11/29/2017 Inr 1.02 0.77-1.02 1 Laboratory test finding 11/29/2017 Partial Thrombo 38.2 seconds High 26.0- 36.3 1, 2 Time PTT Comp Metabolic Panel 11/29/2017 Sodium 140 mmol/L 133-145 1 Potassium 4.0 mmol/L 3.5-5.0 1 Chloride 101 mmol/L 101-111 1 Co2 Carbon Dioxide 30 mmol/L 22-32 1 Anion Gap 9 mmol/L 2-11 1 Glucose 92 mg/dL 70-100 1 Blood Urea Nitrogen 13 mg/dL 6-24 1 Creatinine 0.76 mg/dL 0.51-0.95 1 BUN/Creatinine Ratio 17.1 8-20 1 Calcium 10.9 mg/dL High 8.6-10.3 1 Total Protein 7.7 g/dL 6.4-8.9 1 Albumin 4.6 g/dL 3.2-5.2 1 Globulin 3.1 g/dL 2-4 1 Albumin/Globulin Ratio 1.5 1-3 1 Total Bilirubin 0.70 mg/dL 0.2-1.0 1 Alkaline Phosphatase 59 U/L 34-104 1 Alt 23 U/L 7-52 1 Ast 25 U/L 13-39 1 Egfr Non- 74.4 >60 1 Egfr 95.7 >60 1, 3 Urine Culture And 11/29/2017 Urine Culture SEE RESULT BELOW 1, 4 Sensitivities Type & Screen 11/29/2017 Patient Blood Type A Positive 1 Antibody Screen NEGATIVE 1 1 AA 12/12 2 AA 12/12 3 Because ethnic data is not always readily available, this report includes an eGFR for both -Americans and non- Americans. The National Kidney Disease Education Program (NKDEP) does not endorse the use of the MDRD equation for patients that are not between the ages of 18 and 70, are , have extremes of body size, muscle mass, or nutritional status, or are non- or non-. According to the National Kidney Foundation, irrespective of diagnosis, the stage of the disease is based on the level of kidney function: Stage Description GFR(mL/min/1.73 m(2)) 1 Kidney damage with normal or decreased GFR 90 2 Kidney damage with mild decrease in GFR 60-89 3 Moderate decrease in GFR 30-59 4 Severe decrease in GFR 15-29 5 Kidney failure <15 (or dialysis) 4 SEE RESULT BELOW Name: EDER MILLER : [address]: Teri Ronquillo MD Acct: [id number] Unit: [id number] AGE: 72 Location: [facility] Re11/29/17 SEX: F Status: REG REF SPEC: [id number] MOLINA: 11/29/17-[address] [facility] DR: Teri Ronquillo MD REQ: [id number] RECD: 11/29/17 STATUS: RAMANDEEP KOWALSKI DR: Eunice Head MD _ SOURCE: URINE SPDESC: ORDERED: Urine Culture COMMENTS: ELLIS 12/12 QUERIES: Urine Source: Clean Catch Procedure Result Reported Site Urine Culture Final 11/30/17- 1354 ML Organism 1 STREP GROUP B Foster Count 10-25,000 (Moderate) CFU/ML Organism 2 NORMAL RAAD Foster Count 1-10,000 (Few) CFU/ML Susceptibility testing of penicillins and other B-lactams approved by FDA for treatment of Streptococcus pyogenes (Group A Strep) and Streptococcus agalactiae (Group B Strep) is not necessary for clinical purposes and need not be done routinely, since as with vancomycin, resistant strains have not been recognized. (CLSI E349-U64;p.66) Positive isolates will be saved for one week. Please call the Microbiology Laboratory if further susceptibility testing is needed. * ML - MAIN LAB ([facility]) . END OF REPORT * ML=Testing performed at Main Lab DEPARTMENT OF PATHOLOGY, [address] [place] [address] Hemal Stroud M.D. Director [facility] # [id number] Procedures Date CPT Code Description Status 12/12/2017 21576 TKR Total Knee Replacement Completed 12/12/201705210 TKR Total Knee Replacement Completed 10/04/201715296 Inject/Drain Joint/Bursa Major Completed 03/10/201733056 Inject/Drain Joint/Bursa Major Completed Encounters Type Date Location Provider CPT E/M Dx Office Visit 12/13/2017 [facility], Jose Ruiz, [address] I10 10:32a [facility] E78.5 Z96.652 Office Visit 12/12/2017 10:29a [facility], Jose Ruiz, [address] I10 [facility] E78.5 Z96.652 I10 E78.5 Office Visit 11/15/2017 11:00a [facility] Ronquillo M.D. 05026 M25.562 C.MEllen M25.561 M17.0 Office Visit 03/10/2017 10:15a [facility] [place] [address] M17.12 C.MEllen Office Visit 08/03/2016 2:00p [facility] 56295 M17.12 Jean Monsalve Office Visit 09/16/2014 10:00a [facility], 10475 715.16 Jean Monsalve Plan of Care 03/02/2018 - Teri Ronquillo M.D.Z47.1 Aftercare following joint replacement surgeryFollow up:Follow up: 2 nyygjK59.652 Presence of left artificial knee joint
[2018-03-13 09:35] VITALS: BP 166/67
--- NOTE | 2018-03-13 10:43 | UC ---
Respiratory Complaint HPI - HPI Summary HPI Summary: Patient is a 72-year-old female who presents to the with chief complaint of cough 2 days. She states she began to feel cough and congestion after returning from a weekend getaway. Denies any sick contacts. History of pneumonia many years ago. Denies any fevers, sweats, chills. Patient endorses bilateral rib discomfort when coughing. Denies any chest pain. Denies any shortness of breath. She states she is coughing more frequent now that she has been taking Mucinex. Denies any other cjsw-grt-gujtmcu medications. Continues to eat and drink well. - History of Current Complaint Chief Complaint: UCRespiratory Stated Complaint: COUGH Time Seen by Provider: 03/13/18 10:11 Hx Obtained From: Patient ?: Yes Timing: Constant Severity Initially: Mild Severity Currently: Mild Pain Intensity: 2 Pain Scale Used: 0-10 Numeric Character: Cough: Productive Associated Signs And Symptoms: Positive: URI. Negative: Dyspnea, Fever, Chills , Pleuritic Chest Pain, Wheezing, Dizziness, Calf Pain, Nasal Congestion, Hoarseness, Sinus Discomfort - Risk Factors Pulmonary Embolism Risk Factors: Negative Cardiac Risk Factors: Negative Pseudomonas Risk Factors: Negative Tuberculosis Risk Factors: Negative - Allergies/Home Medications Allergies/Adverse Reactions: Allergies Allergy/AdvReac Type Severity Reaction Status Date / Time latex Allergy Unknown Verified 03/13/18 09:36 Reaction Details Home Medications: Home Medications guaiFENesin [Mucinex] 600 mg PO BID PRN 03/13/18 [History Confirmed 03/13/18] PMH/Surg Hx/FS Hx/Imm Hx Previously Healthy: Yes - Surgical History Surgical History: Yes Surgery Procedure, Year, and Place: D&C-. L knee replacement - Family History Known Family History: Positive: None - Social History Occupation: Unemployed Lives: With Family Alcohol Use: Occasionally Substance Use Type: None Smoking Status (MU): Former Smoker Amount Used/How Often: 1 PPD X 18 YEARS When Did the Patient Quit Smoking/Using Tobacco: 34 YEARS AGO - Immunization History Most Recent Influenza Vaccination: 08/2017 Most Recent Pneumonia Vaccination: 2015 Review of Systems Constitutional: Negative Skin: Negative Eyes: Negative ENT: Negative Respiratory: Cough Cardiovascular: Negative Motor: Negative Neurovascular: Negative Neurological: Negative Psychological: Negative Is Patient Immunocompromised?: No All Other Systems Reviewed And Are Negative: Yes Physical Exam Triage Information Reviewed: Yes Appearance: Well-Appearing, Well-Nourished Vital Signs: Initial Vital Signs Temp 99.5 F 03/13/18 09:31 Pulse 74 03/13/18 09:31 Resp 16 03/13/18 09:31 BP 166/67 03/13/18 09:31 Pulse Ox 97 03/13/18 09:31 Vital Signs Reviewed: Yes Eyes: Positive: Conjunctiva Clear Neck exam: Normal Neck: Positive: Supple, No Lymphadenopathy Respiratory Exam: Normal Respiratory: Positive: Chest non-tender, Lungs clear Cardiovascular Exam: Normal Cardiovascular: Positive: RRR Musculoskeletal Exam: Normal Musculoskeletal: Positive: Strength Intact Neurological: Positive: Alert Psychological: Positive: Normal Response To Family Skin Exam: Normal Diagnostic Evaluation - Laboratory O2 Sat by Pulse Oximetry: 97 Respiratory Course/Dx - Course Course Of Treatment: During the course of treatment, the patient's evaluated for cough congestion. Chest x-ray obtained which shows no acute findings. I' ve discussed a prescription cough medication and have encouraged her to continue the Mucinex. As this is only been 2 days and she denies any fevers, sweats, chills I am not concerned at this time for a pneumonia or any respiratory infection requiring antibiotic usage. - Differential Dx/Diagnosis Provider Diagnoses: URI Discharge - Sign-Out/Discharge Documenting (check all that apply): Discharge/Admit/Transfer - Discharge Plan Condition: Stable Disposition: HOME Prescriptions: Benzonatate CAP* [Tessalon CAP*] 100 mg PO TID #21 cap Patient Education Materials: Upper Respiratory Infection (ED) Referrals: Eunice Head MD [Primary Care Provider] - Additional Instructions: Tessalon up to three times daily as prescribed May also use over the counter robitussin Continue with mucinex Cough drops For symptoms not improving after 10 days or if you develop fevers, sweats or chills - return to the - Billing Disposition and Condition Condition: STABLE Disposition: HOME
--- NOTE | 2018-03-13 10:49 | RAD ---
Indication: Cough. 2 views of the chest including dual energy PA views demonstrates no mediastinal shift. Heart is of normal size and configuration. Lung dominguez are clear. When compared to previous exam of November 29, 2017 no significant change is noted. IMPRESSION: No active cardiopulmonary disease is noted.
== END 2018-03-13 11:00 | disposition home or self-care (01) ==
LOC: UCEAST 09:25
DX: J06.9 Acute upper respiratory infection, unspecified (principal); Z91.040 Latex allergy status; Z96.652 Presence of left artificial knee joint; Z87.891 Personal history of nicotine dependence
CPT/HCPCS: 71046; 99212; G0463

== ENCOUNTER 2018-12-18 08:02 | Inpatient (IN) | payer MEDICARE ==
--- NOTE | 2018-12-11 15:05 | HP ---
HISTORY AND PHYSICAL: DATE OF ADMISSION/SURGERY: 12/18/18 DATE OF OFFICE VISIT: 12/10/18 SURGEON: Teri Ronquillo MD.* (DICTATED BY GAIL ABEL) PROCEDURE: Right total knee arthroplasty. CHIEF COMPLAINT: Right knee pain. HISTORY OF PRESENT ILLNESS: Ms. Dougherty is a 73-year-old female with end-stage osteoarthritis of the right knee. She has failed conservative treatment and elected to proceed with a right total knee arthroplasty. PAST MEDICAL HISTORY: Hypertension, high cholesterol, metabolic syndrome, and early stage dementia. PAST SURGICAL HISTORY: D and C x2, cataract excision, left total knee arthroplasty, removal of a basal cell carcinoma. CURRENT MEDICATIONS: 1. Spironolactone 25 mg daily. 2. Atenolol 25 mg daily. 3. Simvastatin 20 mg daily. 4. Aspirin 81 mg. 5. Cod liver oil. 6. CoQ10. 7. Multivitamin. 8. Calcium with vitamin D. 9. Ibuprofen as needed. ALLERGIES: To latex. FAMILY HISTORY: Family history of diabetes, cancer, coronary artery disease, and COPD. SOCIAL HISTORY: She is a 73-year-old female. She lives with her . She does not smoke or use drugs; uses occasional alcohol. REVIEW OF SYSTEMS: A complete 14-point review of systems was reviewed with the patient, was all negative or noncontributory. She denies history of DVT, PE, hepatitis, HIV, or anesthesia problems. PHYSICAL EXAMINATION GENERAL: She is well developed, well nourished, in no acute distress. VITAL SIGNS: She stands 5 feet 2 inches tall, weighs 158 pounds. Her blood pressure 160/86 and heart rate 64. HEENT: Normocephalic, atraumatic. NECK: Supple. No palpable lymph nodes. PULMONARY: The lungs are clear to auscultation bilaterally. CARDIO: Regular rate and rhythm. Strong S1 and S2. ABDOMEN: Soft, nontender, nondistended. NEUROLOGIC: She is alert and oriented x3. MUSCULOSKELETAL: Right lower extremity: The skin is intact. There are no open wounds or abrasions. There is a moderate joint effusion. She has a 12- degree valgus deformity. Range of motion is 5 to 120 degrees of flexion with significant patellofemoral crepitus. She has tenderness over the medial and lateral joint lines. There is a 2+ dorsalis pedis pulse and intact sensation. Her lower extremity muscle group strengths are intact at 5/5. ASSESSMENT AND PLAN: Ms. Dougherty is a 73-year-old female with end-stage osteoarthritis of the right knee. She has failed conservative treatment and elected to proceed with a right total knee arthroplasty. Surgery is scheduled for 12/18/[address] Ronquillo discussed the risks and benefits of the surgery at today's visit and all of her questions were answered. She will follow with Dr. Ronquillo 2 weeks after the surgery. GAIL ABEL [id number]/[facility] #: [id number] JAJA
[~2018-12-18 08:02] MED LIST changes: +Acetaminophen IV 1GM/100ML * 1,000 MG/100 ML VIAL IVPB ONE; -Buffered Lidocaine 0.9% SYRIN* 5 ML/SYR SYRINGE INTRADERM ONE; +Buffered Lidocaine 1% SYRIN* 1 ML/SYRINGE INTRADERM ONE; -Bupivacaine 0.5% SDV PF* 10-30ML VIAL ONE; +Dexamethasone IV* 4 MG/ML 1 ML (4 MG) IV SLOW PU ONE; -DiMENhydriNATE IV* 50 MG/ML VIAL IV PUSH PRN; +Lactated Ringers 1000 ML Bag* 1,000 ML IV SCH; -Morphine INJ* 2 MG/ML 1 ML CARPUJECT IV PRN; -Naloxone* 0.4 MG/ML 1 ML VIAL IV PRN; -PROCHLORPERAZINE INJ 5 MG/ML 2 ML VIAL IV PRN; -Scopolamine 1.5 mg* PATCH TRANSDERM ONE; +Tranexamic Acid 1,000 MG in NS 0.9% 50 ML* (outpatient use) IV SCH; +celeCOXIB CAP* 200 MG PO ONE; -fentaNYL* 50 MCG/ML 2 ML VIAL (100 MCG VIAL) IV PRN
--- OUTSIDE RECORDS SUMMARY | 2018-12-18 08:06 | XMS REPORT | Continuity of Care Document ---
:1945 External Reference #:[id number] Author Name Mildred Bentley Care Team Providers Name Role Phone Eunice Head MD Primary Care Physician Unavailable Payers Type Date Identification Numbers Payment Provider Subscriber Policy Number: [id number] Medicare Blue Ppo Susanna Miller Group Number: [id number] [address] [address] PayID: [id number] KATHY Mays [id number] Advance Directives Description No Information Available Problems Date Description Provider Status Onset: 08/03/2016 Localized, primary osteoarthritis Avel Lopez M.D. Active Family History Date Family Member(s) Problem(s) Comments General Diabetes General Heart Disease Social History Type Date Description Comments Sex Unknown Lives With Spouse ETOH Use Currently consumes alcohol Tobacco Use Start: Unknown Patient has never smoked Smoking Status Reviewed: 12/10/18 Patient has never smoked Exercise Type/Frequency Exercises sporadically Allergies, Adverse Reactions, Alerts Date Description Reaction Status Severity Comments 09/11/2014 Latex Active Medications Medication Date Status Form Strength Qnty SIG Indications Ordering Provider Amoxicillin 03/22/ Active Capsules 500mg 4caps take 4 Teri 2018 pills, 2 g Yg, 1 hour M.D. before dental or gi procedure Spironolactone / Active Tablets 25mg As Unknown 0000 directed Atenolol / Active Tablets 25mg As Unknown 0000 directed Simvastatin / Active Tablets 20mg 1 by mouth Unknown 0000 every day Aspir-Low / Active Tablets DR 81mg 1 by mouth Unknown 0000 every day Cod Liver Oil / Active Capsules 1000mg once daily Unknown 0000 Co Q10 Maximum / Active Capsules 200mg Unknown Strength 0000 Multi For Her / Active As Unknown 0000 directed Calcium 600+D3 / Active Tablets 600-400mg 1 by mouth Unknown 0000 -Unit every day Ibuprofen 200 00/ Active Tablets 200mg 400-600mg Unknown 0000 every 6 hours as needed for pain. Compression 01/26/ Hx Misc 2unit b/L Teri Stockings 2017 - s LE's Yg, 12/09/ M.D. 2018 Ibuprofen 12/27/ Hx Tablets 600mg 90tab take 1 tab M25.562 Teri 2017 - s by mouth Yg, 12/09/ with food M.D. 2018 3 times a day as needed pain Cyclobenzaprine 12/20/ Hx Tablets 10mg 60tab take 1 tab M25.562 Teri HCL 2017 - s by mouth 2 Yg, 01/25/ times a M.D. 2017 day as needed Coumadin 12/08/ Hx Tablets 2mg 90tab take 1-3 Teri 2018 - s tabs by Yg, 01/25/ mouth at 5 M.D. 2018 at night as directed Oxycodone-Acetami 12/08/ Hx Tablets 5-325mg 60tab 1-2 tabs Teri nophen 2017 - s by mouth Yg, 01/25/ every 6 M.D. 2018 hours as needed for post-op pain Bactrim DS 12/01/ Hx Tablets 800-160mg 6tabs take 1 by Teri 2018 - mouth Yg, 12/25/ twice a M.D. 2017 day for 3 days Colace 11/29/ Hx Capsules 100mg 90cap 1 tab by Teri 2018 - s mouth 2-3 Yg, 01/25/ times a M.D. 2017 day as needed Aleve / Hx Tablets 220mg as needed Unknown 0000 - 2017 Medications Administered in Office Medication Date Status Form Strength Qnty SIG Indications Ordering Provider Depomedrol 40MG 11/07/ Administered Injection Teri Ronquillo M.D. Depomedrol 40MG 10/04/ Administered Injection Avle 2016 Gricel Lopez Triamcinolone 03/10/ Administered Injection Zaneb (Kenalog) 2016 MD Robbi Immunizations Description No Information Available Vital Signs Date Vital Result Comment 12/10/2018 10:22am Height 62.25 inches 5'2.25" Weight 158.00 lb Heart Rate 64 /min BP Systolic 160 mmHg BP Diastolic 86 mmHg Body Temperature 98.0 F BMI (Body Mass Index) 28.7 kg/m2 11/12/2018 1:34pm Height 62.25 inches 5'2.25" Weight 159.00 lb BP Systolic 144 mmHg BP Diastolic 72 mmHg Respiratory Rate 16 /min Pain Level 6 BMI (Body Mass Index) 28.8 kg/m2 11/07/2018 8:31am Height 62.25 inches 5'2.25" Weight 159.00 lb Heart Rate 68 /min BP Systolic 146 mmHg BP Diastolic 80 mmHg BMI (Body Mass Index) 28.8 kg/m2 03/02/2018 10:39am Height 62 inches 5'2" Heart Rate 66 /min BP Systolic 110 mmHg BP Diastolic 62 mmHg Respiratory Rate 16 /min Body Temperature 97.0 F Pain Level 2 01/26/2018 9:47am Height 62 inches 5'2" Weight 150.00 lb BP Systolic 150 mmHg BP Diastolic 80 mmHg Body Temperature 98.4 F Pain Level 2 BMI (Body Mass Index) 27.4 kg/m2 12/27/2017 10:19am Height 62 inches 5'2" Weight 156.00 lb Heart Rate 80 /min BP Systolic 140 mmHg BP Diastolic 74 mmHg Body Temperature 97.8 F Pain Level 5 BMI (Body Mass Index) 28.5 kg/m2 12/20/2017 9:23am Height 62.5 inches 5'2.50" Weight 156.00 lb BP Systolic 138 mmHg BP Diastolic 80 mmHg Body Temperature 97.5 F Pain Level 7 BMI (Body Mass Index) 28.1 kg/m2 11/29/2017 10:27am Height 62.25 inches 5'2.25" Weight 160.00 lb BP Systolic 151 mmHg BP Diastolic 96 mmHg Respiratory Rate 15 /min Body Temperature 96.6 F Pain Level 3 BMI (Body Mass Index) 29.0 kg/m2 11/15/2017 11:18am Height 62.25 inches 5'2.25" Weight 160.00 lb BP Systolic 164 mmHg BP Diastolic 90 mmHg Body Temperature 99.0 F BMI (Body Mass Index) 29.0 kg/m2 10/04/2017 2:50pm Height 65.75 inches 5'5.75" Weight 163.00 lb BP Systolic 130 mmHg BP Diastolic 78 mmHg Respiratory Rate 20 /min Pain Level 4 BMI (Body Mass Index) 26.5 kg/m2 03/10/2017 11:35am Height 65.75 inches 5'5.75" Weight 163.00 lb BP Systolic 174 mmHg BP Diastolic 72 mmHg Respiratory Rate 16 /min Pain Level 3 BMI (Body Mass Index) 26.5 kg/m2 08/03/2016 1:48pm Height 65.75 inches 5'5.75" Weight 164.00 lb BP Systolic Sitting 140 mmHg BP Diastolic Sitting 90 mmHg Pain Level 2 2/10 increases as day goes on BMI (Body Mass Index) 26.7 kg/m2 09/16/2014 10:10am Height 63 inches 5'3" Weight 166.00 lb Heart Rate 71 /min BP Systolic 189 mmHg BP Diastolic 79 mmHg BMI (Body Mass Index) 29.4 kg/m2 Results Test Date Facility Test Result H/L Range Note Urinalysis Profile 11/29/2017 [facility] Urine Color Yellow [address] [place] [address] [phone] Urine Appearance Clear Urine Specific [place] 1.005 Low 1.010-1.030 Urine pH 7.0 N 5-9 Urine Urobilinogen Negative Negative Urine Ketones Trace Abnormal Negative Urine Protein Negative Negative Urine Leukocytes Negative Negative Urine Blood Negative Negative Urine Nitrite Negative Negative Urine Bilirubin Negative Negative Urine Glucose Negative Negative CBC Auto Diff 11/29/2017 [facility] White Blood 9.4 10^3/uL N 3.5-10.[address] [place] [address] [phone] Red Blood Count 5.29 10^6/uL N 4.0-5.4 Hemoglobin 16.1 g/dL High 12.0-16.0 Hematocrit 46 % N 35-47 Mean Corpuscular Volume 87 fL N 80-97 Mean Corpuscular Hemoglobin 30 pg N 27-31 Mean Corpuscular HGB Conc 35 g/dL N 31-36 Red Cell Distribution Width 14 % N 10.5-15 Platelet Count 245 10^3/uL N 150-450 Mean Platelet Volume 10 um3 N 7.4-10.4 Abs Neutrophils 5.8 10^3/uL N 1.5-7.7 Abs Lymphocytes 2.4 10^3/uL N 1.0-4.8 Abs Monocytes 0.9 10^3/uL High 0-0.8 Abs Eosinophils 0.2 10^3/uL N 0-0.6 Abs Basophils 0.1 10^3/uL N 0-0.2 Abs Nucleated RBC 0 10^3/uL Granulocyte % 62.4 % N 38-83 Lymphocyte % 25.3 % N 25-47 Monocyte % 9.7 % High 1-9 Eosinophil % 1.7 % N 0-6 Basophil % 0.9 % N 0-2 Nucleated Red Blood Cells % 0.1 Inr/Protime 11/29/2017 [facility] Inr 1.02 N 0.77-1.[address] [place] [address] [phone] Laboratory test 11/29/2017 [facility] Partial 38.2 High 26.0- 36.3 [address] [place] [address] Time PTT [phone] Comp Metabolic 11/29/2017 [facility] Sodium 140 mmol/L N 133- [address] [place] [address] [phone] Potassium 4.0 mmol/L N 3.5-5.0 Chloride 101 mmol/L N 101-111 Co2 Carbon Dioxide 30 mmol/L N 22-32 Anion Gap 9 mmol/L N 2-11 Glucose 92 mg/dL N 70-100 Blood Urea Nitrogen 13 mg/dL N 6-24 Creatinine 0.76 mg/dL N 0.51-0.95 BUN/Creatinine Ratio 17.1 N 8-20 Calcium 10.9 mg/dL High 8.6-10.3 Total Protein 7.7 g/dL N 6.4-8.9 Albumin 4.6 g/dL N 3.2-5.2 Globulin 3.1 g/dL N 2-4 Albumin/Globulin Ratio 1.5 N 1-3 Total Bilirubin 0.70 mg/dL N 0.2-1.0 Alkaline Phosphatase 59 U/L N 34-104 Alt 23 U/L N 7-52 Ast 25 U/L N 13-39 Egfr Non- 74.4 >60 Egfr 95.7 >60 3 Urine Culture And 11/29/2017 [facility] Urine Culture SEE RESULT [address] [place] [address] [phone] Type & Screen 11/29/2017 [facility] Patient Blood A Positive [address] [place] [address] [phone] Antibody Screen NEGATIVE 1 AA 12/12 2 AA 12/12 3 [...] [address]: Teri Ronquillo MD Acct: [id number] Unit: [id number] AGE: 72 Location: [facility] Re11/29/17 SEX: F Status: REG REF SPEC: [id number] MOLINA: 11/29/17-[address] [facility] [address]: Teri Ronquillo MD REQ: [id number] RECD: 11/29/17-6785 STATUS: COMP [facility] DR: Eunice Head MD _ SOURCE: URINE SPDESC: ORDERED: Urine Culture COMMENTS: ELLIS 12/12 QUERIES: Urine Source: Clean Catch Procedure Result Reported Site Urine Culture Final 11/30/17- 1354 ML Organism 1 STREP GROUP B Switzer Count 10-25,000 (Moderate) CFU/ML Organism 2 NORMAL RAAD Switzer Count 1-10,000 (Few) CFU/ML Susceptibility testing of penicillins and other B-lactams approved by FDA for treatment of Streptococcus pyogenes (Group A Strep) and Streptococcus agalactiae (Group B Strep) is not necessary for clinical purposes and need not be done routinely, since as with vancomycin, resistant strains have not been recognized. (CLSI W843-X29;p.66) Positive isolates will be saved for one week. Please call the Microbiology Laboratory if further susceptibility testing is needed. * ML - MAIN LAB ([facility]) . END OF REPORT * ML=Testing performed at Main Lab DEPARTMENT OF PATHOLOGY, [address] [place] [address] Hemal Stroud M.D. Director [facility] # [id number] Procedures Date Code Description Status 11/07/201834704 Inject/Drain Joint/Bursa Major W/O US Completed 12/12/2017 46809 TKR Total Knee Replacement Completed 12/12/2017 83790 TKR Total Knee Replacement Completed 10/04/201733157 Inject/Drain Joint/Bursa Major W/O US Completed 03/10/201725613 Inject/Drain Joint/Bursa Major W/O US Completed Encounters Type Date Location Provider Dx Diagnosis Office Visit 11/12/2018 [facility] Teri Ronquillo, M17.11 Unilateral primary 1:15p [facility] M.D. osteoarthritis, right knee M21.062 Valgus deformity, not elsewhere classified, left knee M25.561 Pain in right knee Office Visit 11/07/2018 8:30a [facility] Teri Ronquillo, M25.561 Pain in right [facility] M.D. knee M17.11 Unilateral primary osteoarthritis, right knee M21.062 Valgus deformity, not elsewhere classified, left knee Office Visit 12/13/2017 10:32a [facility] Joseph, N.P. (primary) Hospitalists hypertension E78.5 Hyperlipidemia, unspecified Z96.652 Presence of left artificial knee joint [facility]12[facility]iz[facility] (primary) Hospitalists hypertension E78.5 Hyperlipidemia, unspecified Z96.652 Presence of left artificial knee joint [facility] (primary) hypertension E78.5 Hyperlipidemia, unspecified Office Visit 11/15/2017 11:00a [facility] Teri Ronquillo M25.562 Pain in left [facility] M.D. knee M25.561 Pain in right knee M17.0 Bilateral primary osteoarthritis of knee Office Visit 03/10/2017 Orthopedic Presley Culp M17.12 Unilateral primary 10:15a [facility] osteoarthritis, left [facility] knee Office Visit 08/03/2016 [facility] Avel M17.12 Unilateral primary 2:00p [facility] Gricel Lopez osteoarthritis, left [facility] knee Office Visit 09/16/2014 [facility] Avel 715.16 Osteoarthrosis 10:00a [facility] G[facility]el Lopez Localized Prim Lower [facility] Leg Plan of Treatment Future Appointment(s):12/31/2018 1:30 pm - Teri Ronquillo M.D. at [facility]12/18/2018 9:30 am - Wilfredo Calvo PA-C at [facility]12/18/2018 9:30 am - GAIL Brooks at [facility]12/18/2018 9:30 am - Teri Ronquillo M.D. at [facility]12/10/2018 - Teri Ronquillo M.D.M17.11 Unilateral primary osteoarthritis, right kneeFollow up:Follow up: 2 weeks after hmqwdaqS39.561 Pain in right kneeZ47.1 Aftercare following joint replacement surgery
[2018-12-18] MEDS ORDERED: Dexamethasone IV* 4 MG/ML 1 ML (4 MG) ONE (08:19)
[2018-12-18] MEDS ORDERED: Famotidine IV* 10 MG/ML 2 ML (20 mg) ONE (08:19)
[2018-12-18] MEDS ORDERED: celeCOXIB CAP* 100 MG ONE (08:20)
[2018-12-18] MEDS ORDERED: Gabapentin CAP(*) 300 MG ONE (08:20)
[2018-12-18] MEDS ORDERED: ceFAZolin 2 GM PREMIX in ORs 2 GM/50 ML BAG IVPB ONE (08:20)
[2018-12-18] MEDS ORDERED: Acetaminophen IV 1GM/100ML * 100 ML ONE (08:33)
[2018-12-18] MEDS ORDERED: ROPIVACAINE 5 MG/ML 30 ML BTL (0.5%) ONE ×2 (10:34→10:54)
[2018-12-18] MEDS ORDERED: fentaNYL* 50 MCG/ML 2 ML VIAL (100 MCG VIAL) ONE (10:42)
[2018-12-18] MEDS ORDERED: Bupivacaine 0.5% SDV PF* 30ML VIAL ONE (10:43)
[2018-12-18] MEDS ORDERED: Midazolam* 1 MG/ML 5 ML VIAL (5 MG) ONE (10:43)
[2018-12-18] MEDS ORDERED: Ondansetron INJ* 2 MG/ML VIAL ONE (10:44)
[2018-12-18] MEDS ORDERED: HYDROmorphone INJ1* 1 MG/ML SYRINGE IV PRN (12:00)
[2018-12-18] MEDS ORDERED: DiMENhydriNATE IV* 50 MG/ML VIAL IV PUSH PRN (12:00)
[2018-12-18] MEDS ORDERED: Ondansetron INJ* 2 MG/ML VIAL IV PRN ×2 (12:00→13:55)
[2018-12-18] MEDS ORDERED: Naloxone* 0.4 MG/ML 1 ML VIAL IV PRN (12:00)
[2018-12-18] MEDS ORDERED: fentaNYL* 50 MCG/ML 2 ML VIAL (100 MCG VIAL) IV PRN (12:00)
[2018-12-18] MEDS ORDERED: oxyCODONE TAB* 5 MG TAB PO PRN (13:55)
[2018-12-18] MEDS ORDERED: Ondansetron TAB* 4 MG PO PRN (13:55)
[2018-12-18] MEDS ORDERED: Polyethylene Glycol 3350* 17 GM PACKET PO PRN (13:55)
[2018-12-18] MEDS ORDERED: oxyCODONE/Acetamin 5/325 MG* TAB PO PRN (13:55)
[2018-12-18] MEDS ORDERED: Bisacodyl SUPP* 10 MG SUPP PR PRN (13:55)
[2018-12-18] MEDS ORDERED: traMADol TAB* 50 MG PO PRN (13:55)
[2018-12-18] MEDS ORDERED: Cyclobenzaprine TAB* 10 MG PO PRN (13:55)
[2018-12-18] MEDS ORDERED: Morphine VIAL* 4 MG/ML VIAL (1 ml vial) IV PRN (13:55)
[2018-12-18] MEDS ORDERED: diPHENhydraMINE IV* 50 MG/ML 1 ml VIAL (BENADRYL) IV PRN (13:55)
[2018-12-18] MEDS ORDERED: Magnesium Hydroxide LIQ* 30 ML UDC PO PRN (13:55)
[2018-12-18] MEDS ORDERED: Acetaminophen TAB* 325 MG PO SCH (14:00)
[2018-12-18] MEDS ORDERED: Benzonatate CAP* 100 MG PO SCH (14:00)
[2018-12-18] MEDS ORDERED: oxyCODONE/Acetamin 5/325 MG* TAB ONE (16:40)
[2018-12-18] MEDS: Lactated Ringers 1000 ML Bag* 1,000 ML IV SCH (17:31)
[2018-12-18] MEDS ORDERED: oxyCODONE TAB* 5 MG TAB ONE (17:43)
[2018-12-18] MEDS ORDERED: Simvastatin TAB(NF) 20 MG TAB PO SCH (18:00)
[2018-12-18] MEDS ORDERED: Atenolol TAB* 25 MG PO SCH (18:00)
[2018-12-18] MEDS ORDERED: Warfarin TAB(*) 6 MG PO ONE (18:30)
[2018-12-18] MEDS ORDERED: Atorvastatin* 10 MG TAB PO SCH (19:00)
[2018-12-18] MEDS: Benzonatate CAP* 100 MG PO SCH (19:47)
[2018-12-18] MEDS: oxyCODONE/Acetamin 5/325 MG* TAB PO PRN (19:48)
[2018-12-18] MEDS: Docusate CAP* 100 MG PO SCH (19:49)
[2018-12-18] MEDS: Magnesium Hydroxide LIQ* 30 ML UDC PO SCH (19:51)
[2018-12-18] MEDS: ceFAZolin 1 GM ADVAN(*) 1 GM in NS 0.9% 50 ML* 50 ML IVPB SCH (19:52)
--- NOTE | 2018-12-18 23:56 | CONS ---
[facility] CONSULTATION REPORT: DATE OF CONSULT: 12/18/18 PROVIDER: Miriam Arreola NP. ATTENDING PHYSICIAN: Dr. Ronquillo. CONSULTING PHYSICIAN: Dr. Edith Romero (dictated by Miriam Arreola NP). REASON FOR CONSULT: Co-management of chronic medical conditions. HISTORY OF PRESENT ILLNESS: Ms. Dougherty is a 73-year-old female with past medical history significant for hypertension, high cholesterol, migraines, and osteoarthritis, who presented to [facility] for an elective right total knee arthroplasty with Dr. Ronquillo. Please see complete dictated H and P from GAIL Alas for complete details. In brief, the patient had ongoing pain , failed conservative measures, therefore opted for a right total knee arthroplasty with Dr. Ronquillo. In the immediate postoperative period, the patient has no complaints. She denies any recent illness. Denies any chest pain, cough, congestion, or hemoptysis. Denies any nausea, vomiting, or diarrhea. Denies any abdominal pain. Denies any gross hematuria, dysuria, focal weakness, or sensory loss. Due to her chronic history of hypertension and hyperlipidemia, we were asked to consult to help co-manage her chronic medical conditions. PAST MEDICAL HISTORY: Significant for: 1. Hypertension. 2. Hyperlipidemia. 3. Migraines. 4. Osteoarthritis. PAST SURGICAL HISTORY: 1. D and C. 2. Cataract surgery. 3. Left total knee arthroplasty. 4. Basal cell carcinoma removed. HOME MEDICATIONS: 1. Aspirin 81 mg p.o. daily. 2. Guaifenesin 600 mg p.o. b.i.d. p.r.n. 3. CoQ10 200 mg p.o. q.a.m. 4. Systane eye drops 1 drop to both eyes bilaterally. 5. Spironolactone 25 mg p.o. q.a.m. 6. Simvastatin 20 mg p.o. q.p.m. 7. [place]-3 1200 mg p.o. daily. 8. Multivitamin 1 tab p.o. daily. 9. Flaxseed 2 teaspoons p.o. daily. 10. Calcium with vitamin D 2 tabs p.o. q.p.m. 11. Atenolol 25 mg p.o. q.p.m. 12. Acetaminophen 650 mg p.o. q.4 hours as needed for pain. ALLERGIES: Allergy to LATEX. FAMILY HISTORY: Mother with a history of congestive heart failure. Grandmother and father with a history of diabetes. Brother with a history of liver and colon cancer. SOCIAL HISTORY: The patient quit smoking over 40 years ago, prior to that she smoked a pack a day for approximately 15 years. She does report rare alcohol use. She denies any illicit drug use. She is . She lives with her . Surrogate decision maker in the event she is unable to make her own decisions is her . She is a full code. REVIEW OF SYSTEMS: There has been no fever, no chills, no unintended weight loss. Denies any chest pain or edema. Denies any cough, hemoptysis, or shortness of breath. Denies any nausea, vomiting, diarrhea, or abdominal pain. Denies any gross hematuria, dysuria, focal weakness or sensory loss. Denies any rashes, lesions, or open sores. Denies any depression or anxiety. PHYSICAL EXAM: Blood pressure 149/80, heart rate is 65, respirations are 16, O2 saturation 98%, temperature was 97.3. General: Ms. Dougherty is sitting on the stretcher in PACU. She is alert and oriented x3. She is not in any acute distress. HEENT: Head is atraumatic, normocephalic. Eyes: EOMs are intact. Sclerae anicteric and not pale. Oral mucosa appeared to be moist. Neck is supple. Lungs are clear to auscultation bilaterally. No wheezes, rales, or rhonchi. Cardiac: S1, S2. Regular rate and rhythm. No murmurs, rubs, or gallops. Abdomen is soft and nontender. Bowel sounds are present x4. Extremities: She is able to move all 4 extremities. She does have diminished movement bilateral lower extremities. Pedal pulses are +2 bilaterally. Skin: She has a dressing that is dry and intact to her right knee. Neurologic: She is awake, alert, and oriented x3. Speech is clear. Thought process in intact. No gross focal deficits are noted. LABORATORY DATA AND DIAGNOSTIC STUDIES: WBCs on 12/10/18 were 10.3, RBCs 5.24, hematocrit was 45, hemoglobin 15.6, platelet count 250. INR was 1.04. Sodium 141, potassium 4.1, chloride 104, carbon dioxide was 28, anion gap was 9, BUN was 17, creatinine 0.72, glucose was 96. AST was 28, ALT was 26, alkaline phosphatase 59. Urine was within normal limits except for +1 ketones. IMPRESSION AND PLAN: Ms. Dougherty is a 73-year-old male female with past medical history significant for hypertension, hyperlipidemia, migraines, and osteoarthritis, who presented to [facility] for elective right total knee arthroplasty with Dr. Ronquillo. In the immediate postoperative period, she has no complaints. Our recommendations are as follows: 1. Status post right total knee arthroplasty. Management per Orthopedics. PT/ OT per Orthopedics. Bowel regimen per Orthopedics. 2. Hypertension. I would continue on atenolol 25 mg p.o. daily. Hold for heart rate less than 60, systolic blood pressure less than 120. She can continue spironolactone, but I would hold for systolic blood pressure less than 120. 3. Hyperlipidemia. She can continue on simvastatin as previously prescribed. 4. FEN: The patient should have a heart healthy, caffeine okay diet. 5. DVT prophylaxis per Orthopedics. 6. Code status: She is a full code. TIME SPENT: Time spent on this consultation was 45 minutes, more than half the time was spent with the patient at the bedside reviewing events leading thus far to her hospitalization, performing my physical exam, and reviewing my plan of care. I have discussed this with my attending Dr. Edith Romero, and she is in agreement with my plan. MIRIAM ARREOLA, MARIKA [id number]/[facility] #: [id number] [facility] HOSPITALInocencio
[2018-12-19] MEDS: oxyCODONE/Acetamin 5/325 MG* TAB PO PRN ×4 (00:20→13:34)
[2018-12-19] MEDS: Acetaminophen TAB* 325 MG PO SCH ×3 (01:54→12:15)
[2018-12-19] MEDS: ceFAZolin 1 GM ADVAN(*) 1 GM in NS 0.9% 50 ML* 50 ML IVPB SCH ×2 (04:06→11:34)
[2018-12-19] MEDS: Lactated Ringers 1000 ML Bag* 1,000 ML IV SCH (04:06)
[2018-12-19 06:30] LABS: Hematocrit 37 % (35-47); Hemoglobin 12.5 g/dl (12.0-16.0); Mean Platelet Volume 9.5 fL (7.4-10.4); Platelet Count 220 10^3/ul (150-450)
[2018-12-19 06:38] LABS: INR 1.05 (0.77-1.02)
[2018-12-19 06:43] LABS: BUN/Creatinine Ratio 17.9 (8-20); EGFR African American 103.8 (>60); EGFR Non-African American 85.8 (>60)
--- NOTE | 2018-12-19 08:28 | OP ---
DATE OF OPERATION: 12/18/18 - ROOM #347 DATE OF : 41 SURGEON: Teri Ronquillo MD PARKING METER COLLECTOR: GAIL Alas. Ms. Swann did help throughout the procedure with preparation of the leg, wound retraction, manipulation of the knee, and wound closure. ANESTHESIOLOGIST: Dr. Tobias. ANESTHESIA: Spinal. PRE-OP DIAGNOSIS: Severe end-stage degenerative osteoarthritis of the right knee joint with 20-degree valgus deformity. POST-OP DIAGNOSIS: Severe end-stage degenerative osteoarthritis of the right knee joint with 20-degree valgus deformity. OPERATIVE PROCEDURE: Right total knee arthroplasty. TOURNIQUET TIME: 55 minutes. COMPLICATIONS: None. ESTIMATED BLOOD LOSS: 200 cc. SPECIMEN: Bone and cartilage from the right knee joint sent to Pathology. HARDWARE USED: This is [employer] cemented total knee arthroplasty hardware. Two packages of Simplex bone cement. For the femur, a size 4 narrow right Legion posterior stabilized femoral component. For the tibia, a size 3 right tibial base plate, Cristal II. For the insert, a 9-mm posterior stabilized articular insert, size 3-4. For the patella, a 29-mm, 7.5 thickness 3-peg all poly patella. BRIEF HISTORY/INDICATION: Ms. Dougherty is a 73-year-old female with years of increasingly severe right knee pain and valgus deformity. She failed conservative treatment with antiinflammatories, pain medication, intraarticular injections, and physical therapy. Radiograph showed [id number] arthritis. She developed severe valgus deformity. Due to continued pain and decreased quality of life, she elected to undergo right total knee arthroplasty. Informed consent was obtained from the patient. She understood the risks of surgery included but were not limited to bleeding, infection, damage to nearby structures, continued pain, need for further surgery, intraoperative fracture, nerve palsy, hardware failure or loosening, knee stiffness, loss of motion, anesthesia complication, stroke, heart attack, blood clot, and . She wished to proceed. INTRAOPERATIVE FINDINGS: Intraoperatively, the patient was noted to have 20- degree flexion contracture and 20-degree of valgus deformity at the start of the case. These were both corrected to anatomic by the end of the case. She was noted to have very tight hamstrings. Cartilage in the lateral and patellofemoral compartments had full-thickness degeneration. DESCRIPTION OF PROCEDURE: Ms. Dougherty was identified in the preanesthesia unit. Her right lower extremity was marked as the correct operative site. Informed consent was signed and placed in the chart. The patient was taken to the operating room and placed under spinal anesthesia. A Gramajo catheter was placed. Tourniquet was placed on the right thigh. Right lower extremity was prepped and draped in the usual sterile fashion. Pre-op time-out was made to correctly identify the patient, side, and site. Appropriate perioperative antibiotics were given within 1 hour of incision. A midline incision was made on the knee. A new 10-blade was used to make a standard medial parapatellar arthrotomy. Patella was subluxed laterally. Electrocautery was used to subperiosteally elevate the soft tissue off the superomedial tibia to the mid sagittal plane. The knee was flexed up. The anterior horn of the lateral meniscus and ACL were sharply released. A drill was used to enter the distal femur. Intramedullary distal femoral cutting guide was pinned on the distal femur. Lateral femoral condylar hypoplasia was noted and accounted for. Oscillating saw was used to make the distal femoral cut. Next, the external rotation guide was pinned on the distal femur. The femur was sized to a size 4. A size 4 multi-cutting jig was pinned on the distal femur. Oscillating saw was used to make the appropriate 4 chamfer cuts. Next, the PCL was completely released. The tibia was subluxed anteriorly. Extramedullary tibial cutting guide was pinned on the proximal tibia. Oscillating saw was used to make the proximal tibial cut perpendicular to the mechanical axis of the tibia. The bone was carefully removed. Knee was brought out into full extension. Spacer block had good fit with the knee in full extension. Medial and lateral ligaments were well balanced. Flexion and extension gaps were well balanced. Knee was flexed up. Lamina park superintendent was placed both medially and laterally. Any remaining meniscus was carefully removed using electrocautery. Curved osteotome was used to remove any posterior osteophytes. Tibial tray and drop aleisha were placed and once again confirmed a satisfactory tibial cut. A size 4 narrow right femoral trial was impacted onto the femur and had excellent fit and stability. The box for the posterior stabilized implant was prepared using a reamer and box cut osteotome. A size 3 tibial tray trial with 9-mm insert was placed and the knee was taken through a range of motion. The knee had extension to 130 degrees of flexion with satisfactory patellofemoral tracking. The patella was everted. 7-mm of patellar bone and cartilage was carefully removed using an oscillating saw. Patella was sized to a size 29. Three peg holes were drilled through the size 29 guide. 29 trial patella was placed and the knee was taken through a range of motion. There was satisfactory patellofemoral tracking. All trials were carefully removed. The tibia was subluxed anteriorly and sized to a size 3. Proximal tibia was prepared using a size 3 keel punch. All bony cut surfaces were copiously irrigated with sterile saline and dried. Final implants were cemented into place starting with the tibia, followed by the femur, and last the patella. A 9-mm insert trial was placed and the knee was brought out to full extension. The tourniquet was turned down at 55 minutes. Electrocautery was used to obtain meticulous hemostasis. The knee was copiously irrigated with sterile saline. Once the cement had fully cured, the insert trial was removed. Any excess cement was carefully removed from around the capsule and hardware. Final insert chosen was a 9-mm posterior stabilized articular insert, size 3-4. This was locked into position on the tibial tray. Stability of the insert was checked and rechecked and noted to be stable. The extensor mechanism was closed using interrupted #1 Vicryl. The rest of the incision was closed in a layered fashion using 0 and 2-0 Vicryl. Skin was closed using running 3-0 nylon suture. Sterile Xeroform, 4x4s, and Webril were used to cover the incision. Jhon wrap and cold pack were placed over this. The patient's anesthesia was reversed without difficulty. She was taken to the PACU in stable condition. Intended weight-bearing will be weightbearing as tolerated. Intended DVT prophylaxis will be Eliquis. [id number]/[facility] #: [id number] [facility]
[2018-12-19] MEDS: Benzonatate CAP* 100 MG PO SCH ×2 (08:45→12:15)
[2018-12-19] MEDS: Docusate CAP* 100 MG PO SCH (08:53)
[2018-12-19] MEDS: Magnesium Hydroxide LIQ* 30 ML UDC PO SCH (08:53)
[2018-12-19] MEDS ORDERED: Spironolactone TAB* 25 MG PO SCH (09:00)
[2018-12-19] MEDS ORDERED: Apixaban* 2.5 MG TAB PO SCH (09:00)
--- NOTE | 2018-12-19 09:24 | PN ---
Progress Note - Progress Note Date of Service: 12/19/18 SOAP: Subjective: [] Pt seen and examined at bedside. She feels well and desires DC to home today. Denies CP, SOB, dizziness, nausea. Objective: []General: Well appearing, NAD RLE: Right knee dressing CDI, Thigh is soft and nontender, DF/PF intact, DP2+, sensation intact to light touch distally Calves supple and nontender without erythema Assessment: []POD 1 sp Right total knee replacement Plan: []WBAT PT/OT eliquis 2.5 mg po BID for 30 days Plan for DC to home today as long as goals met with PT Will change dressing before DC Vital Signs Temp 98.5 F 12/19/18 04:11 Pulse 51 12/19/18 07:29 Resp 18 12/19/18 08:41 BP 117/44 12/19/18 07:29 Pulse Ox 97 12/19/18 07:29 Intake & Output 12/18/18 12/19/18 12/19/18 18:59 06:59 18:59 Intake Total 1500 2330 Output Total 300 895 Balance 1200 1435 Weight 159 lb Intake: IV Fluids 1500 1030 ABX - CEFAZOLIN 50 LR 1500 980 Oral 1300 Output: Gramajo 300 895 Other: Estimated Blood Loss MINIMAL Comment Laboratory Last Values Hgb 12.5 g/dl (12.0-16.0) 12/19/18 06:14 Hct 37 % (35-47) 12/19/18 06:14 Plt Count 220 10^3/ul (150-450) 12/19/18 06:14 MPV 9.5 fL (7.4-10.4) 12/19/18 06:14 INR (Anticoag Therapy) 1.05 (0.77-1.02) H 12/19/18 06:14 Sodium 135 mmol/L (135-145) 12/19/18 06:14 Potassium 4.0 mmol/L (3.5-5.0) 12/19/18 06:14 Chloride 102 mmol/L (101-111) 12/19/18 06:14 Carbon Dioxide 27 mmol/L (22-32) 12/19/18 06:14 Anion Gap 6 mmol/L (2-11) 12/19/18 06:14 BUN 12 mg/dL (6-24) 12/19/18 06:14 Creatinine 0.67 mg/dL (0.51-0.95) 12/19/18 06:14 Est GFR ( Amer) 103.8 (>60) 12/19/18 06:14 Est GFR (Non-Af Amer) 85.8 (>60) 12/19/18 06:14 BUN/Creatinine Ratio 17.9 (8-20) 12/19/18 06:14 Glucose 133 mg/dL (70-100) H 12/19/18 06:14 Calcium 9.0 mg/dL (8.6-10.3) 12/19/18 06:14
[2018-12-19] MEDS ORDERED: Enoxaparin(*) 40 MG/0.4 ML SYR SUBCUT SCH (12:00)
[2018-12-19 16:21] VITALS: BP 137/49
--- NOTE | 2018-12-19 21:44 | DS ---
DISCHARGE SUMMARY: DATE OF ADMISSION: 12/18/18 DATE OF DISCHARGE: 12/19/18 PROVIDER: Dr. Teri Ronquillo.* (DICTATED BY GAIL MULLINS) PRE-OP DIAGNOSIS: Severe endstage degenerative osteoarthritis of the right knee joint with 20-degree valgus deformity. OPERATIVE PROCEDURE: Right total knee arthroplasty. INDICATIONS: Ms. Dougherty is a 73-year-old female with right knee arthritis. She failed conservative management and elected to undergo a right total knee arthroplasty. HOSPITAL COURSE: The patient was admitted to [facility] on . She underwent a right total knee arthroplasty without complications. On postop day#1, she was well appearing in no acute distress. Her knee dressing was changed. Incision clean, dry and intact. The thigh was soft and nontender. Dorsiflexion and plantarflexion intact. DP pulse 2+. Sensation intact to light touch distally. Calf supple and nontender without erythema. The patient met her goals for PT. Vital Signs: Temperature 98.5, pulse 51, respiratory rate 18, blood pressure 117 /44, pulse ox 97. Hemoglobin 12.5, hematocrit 37, INR 1.05, sodium 135, potassium 4.0. The patient was deemed to be medically and orthopedically ready for discharge to home. DISCHARGE MEDICATIONS: 1. Calcium 600 and vitamin D3 800 two tabs p.o. q.a.m. 2. CoQ-10 200 mg p.o. q.a.m. 3. Aspirin 81 mg p.o. q.a.m. 4. Flaxseed 453 g 2 tablespoons p.o. q.a.m. 5. Systane 1 drop to both eyes b.i.d. 6. Spironolactone 25 mg p.o. q.a.m. 7. Simvastatin 20 mg p.o. q.p.m. 8. Multivitamin 1 tab p.o. q.a.m. 9. Atenolol 25 mg 1 tab p.o. q.p.m. 10. Acetaminophen 650 mg p.o. q.4 hours p.r.n. 11. Mucinex 600 mg b.i.d. p.r.n. 12. Benzonatate 100 mg p.o. b.i.d. 13. Fish oil 1200 mg softgel. 14. Acetaminophen 975 mg p.o. q.8 hours. 15. Eliquis 2.5 mg p.o. b.i.d. for 30 days. 16. Docusate 100 mg p.o. b.i.d. p.r.n. 17. Percocet 5/325 mg 1 to 2 tabs every 4 to 6 hours as needed for pain. Max daily dose of 10. DISCHARGE PLAN: The patient will be weightbearing as tolerated. Eliquis 2.5 mg twice daily for 1 month. Pain control with Percocet 5/325 one to two tabs every 4 to 6 hours as needed for pain, max daily dose of 10. Follow up with Dr. Ronquillo in 10 to 14 days. GAIL CABRAL [id number]/[facility] #: [id number] [facility]TD[facility]
== END 2018-12-19 16:45 | disposition home health service (06) | DRG 470 ==
LOC: AA 08:02 → SSU 17:09
PROVIDERS: ADMIT Orthopaedic Surgery Adult Reconstructive Orthopaedic Surgery; ATTEND Orthopaedic Surgery Adult Reconstructive Orthopaedic Surgery
PROC: 0SRC0J9 Replacement of Right Knee Joint with Synthetic Substitute, Cemented, Open Approach (ICD-10-PCS; principal; 2018-12-18 11:00)
DX: M17.11 Unilateral primary osteoarthritis, right knee (principal); I10 Essential (primary) hypertension; F03.90 Unspecified dementia, unspecified severity, without behavioral disturbance, psychotic disturbance, mood disturbance, and anxiety; Z96.1 Presence of intraocular lens; Z96.652 Presence of left artificial knee joint; G43.909 Migraine, unspecified, not intractable, without status migrainosus; E66.9 Obesity, unspecified; M21.061 Valgus deformity, not elsewhere classified, right knee; M25.761 Osteophyte, right knee; E78.5 Hyperlipidemia, unspecified; M25.461 Effusion, right knee; L71.8 Other rosacea; Z85.828 Personal history of other malignant neoplasm of skin; Z91.040 Latex allergy status; Z83.3 Family history of diabetes mellitus; Z82.49 Family history of ischemic heart disease and other diseases of the circulatory system; Z82.5 Family history of asthma and other chronic lower respiratory diseases; Z72.89 Other problems related to lifestyle; Z98.42 Cataract extraction status, left eye; Z98.41 Cataract extraction status, right eye; Z68.29 Body mass index [BMI] 29.0-29.9, adult; Z80.0 Family history of malignant neoplasm of digestive organs; Z83.49 Family history of other endocrine, nutritional and metabolic diseases; Z87.891 Personal history of nicotine dependence; Z79.82 Long term (current) use of aspirin
CPT/HCPCS: 36415; 80048; 85014; 85018; 85049; 85610; A9270-GY; C1776; G8978-GP-CJ; G8979-GP-CI; G8987-GO-CJ; G8988-GO-CJ; G8989-GO-CJ; J0690; J1100; J2250; J2405; J2795; J3010

== ENCOUNTER 2024-09-01 19:54 | Observation (INO) ==
[2024-09-01 20:20] LABS: ABS Lymphocytes 1.6 10^3/uL (1.0-4.8); ABS Monocytes 1.2 10^3/uL (0.0-0.9); ABS Neutrophils 5.3 10^3/uL (1.5-7.6); ABS Nucleated RBC 0.01 10^3/ul; Eosinophil % 0.5 %; Hematocrit 44.3 % (35-45); Lymphocyte % 19.3 %; Mean Corpuscular Hemoglobin 30.9 pg (27-33); Mean Corpuscular Hgb Conc 33.9 g/dL (31-36); Mean Corpuscular Volume 91.3 fL (80-97); Mean Platelet Volume 9.6 fL (7.5-11.2); Nucleated Red Blood Cells % 0.1 %/100WBC (0.0-0.8); Platelet Count 188 10^3/uL (150-450); Red Blood Count 4.85 10^6/uL (3.63-4.92); Red Cell Distribution Width 13.7 % (12-17); White Blood Count 8.2 10^3/uL (3.8-11.8)
[2024-09-01 20:29] LABS: INR 1.18 (0.85-1.14)
[2024-09-01] MEDS: Iodixanol 320 (CONTRAST) 100 ML SDV IV ONE (20:32)
[2024-09-01 21:13] LABS: Urine Appearance Turbid; Urine Bilirubin Negative (Negative); Urine Blood Negative (Negative); Urine Color Light-Yellow; Urine Glucose Negative (Negative); Urine Ketones Negative (Negative); Urine Nitrite Negative (Negative); Urine Protein Trace (Negative); Urine Urobilinogen Negative (Negative); Urine pH 8.5 (5.0-8.0)
[2024-09-01 21:20] LABS: ALT 14 U/L (7-52); Albumin 3.9 g/dL (3.2-5.2); Alkaline Phosphatase 69 U/L (35-149); Anion Gap 5 mmol/L (2-16); Blood Urea Nitrogen 20 mg/dL (6-24); CO2 Carbon Dioxide 32 mmol/L (22-32); Calcium 9.6 mg/dL (8.6-10.3); Chloride 99 mmol/L (101-111); Cholesterol 192 mg/dL; Creatinine, Serum 0.76 mg/dL (0.51-0.95); Globulin 3.8 g/dL (2-4); Glucose 97 mg/dL (70-100); HDL Cholesterol 50.8 mg/dL; LDL Cholesterol 116 mg/dL; Sodium 136 mmol/L (135-145); Total Bilirubin 0.3 mg/dL (0.2-1.0); Total Protein 7.7 g/dL (6.4-8.9); Triglycerides 128 mg/dL; eGFR CKD-EPI 78.7 (>60)
[2024-09-01] MEDS: Lactated Ringers 1000 ml BAG 1,000 ML IV ONE (21:39)
[2024-09-01 22:26] LABS: Potassium Redraw 4.3 mmol/L (3.5-5.0)
[2024-09-01] MEDS ORDERED: Polyethylene Glycol 3350 17 GM PACKET PO PRN (23:37)
[2024-09-01] MEDS ORDERED: Senna TAB 8.6 mg TAB PO PRN (23:37)
[2024-09-02] MEDS: Enoxaparin 40 MG/0.4 ML SYR SUBCUT SCH (00:18)
[2024-09-02] MEDS: Remdesivir 100 mg Vial 200 MG in NS 0.9% 250 ml 210 ML IV ONE (00:38)
[2024-09-02 07:02] LABS: Hematocrit 34.4 % (35-45); Hemoglobin 11.5 g/dL (11.5-14.3); Mean Corpuscular Hemoglobin 31.1 pg (27-33); Mean Corpuscular Hgb Conc 33.6 g/dL (31-36); Mean Corpuscular Volume 92.7 fL (80-97); Mean Platelet Volume 9.8 fL (7.5-11.2); Platelet Count 138 10^3/uL (150-450); Red Blood Count 3.71 10^6/uL (3.63-4.92); Red Cell Distribution Width 13.3 % (12-17); White Blood Count 7.3 10^3/uL (3.8-11.8)
[2024-09-02 08:47] LABS: ABS Basophils 0.1 10^3/uL (0.0-0.1); ABS Eosinophils 0.1 10^3/uL (0.0-0.5); ABS Lymphocytes 1.9 10^3/uL (1.0-4.8); ABS Monocytes 1.6 10^3/uL (0.0-0.9); ABS Neutrophils 3.7 10^3/uL (1.5-7.6); ABS Nucleated RBC 0.03 10^3/ul; Eosinophil % 1.5 %; Lymphocyte % 25.5 %; Nucleated Red Blood Cells % 0.4 %/100WBC (0.0-0.8)
[2024-09-02] MEDS: Lactated Ringers 1000 ml BAG 1,000 ML IV SCH (14:46)
[2024-09-02] MEDS ORDERED: Remdesivir 100 mg Vial 100 MG in NS 0.9% 250 ml 230 ML IV SCH (21:00)
[2024-09-03 06:51] LABS: INR 1.29 (0.85-1.14)
[2024-09-03 07:06] LABS: Albumin/Globulin Ratio 1.1 (1-3); Calcium 8.4 mg/dL (8.6-10.3); Creatinine, Serum 0.55 mg/dL (0.51-0.95); Globulin 2.7 g/dL (2-4); Total Bilirubin 0.2 mg/dL (0.2-1.0); Total Protein 5.7 g/dL (6.4-8.9)
[2024-09-03] MEDS ORDERED: Artificial Tear OPHTH.OINT 3.5 GM BOTH EYES PRN (13:07)
[2024-09-03 16:01] VITALS: BP 126/47
== END 2024-09-03 14:46 | disposition home or self-care (01) ==
LOC: EDHOLD 19:54 → ED 19:54 → SUATTDRO 23:37 → MED 09-02 15:34
PROVIDERS: ADMIT Internal Medicine; ATTEND Hospitalist